=== PATIENT | male | born 1940 | race Caucasian/White ===

== ENCOUNTER → 2016-08-26 | Outpatient (CLI) | payer OTHER ==
[~2016-08-26] MED LIST: /METO25TAB PO; ACET30TAB PO; ACET50TA PO; ALLO100T PO; AMLO2.5T PO; AMLO5TAB2 PO; AMOX875T2 PO; ASPI325T PO; ASPI81TA7 PO; ASPI81TA85 PO; BACITAB3 PO; BRIM0.2S OU; BRIM2OPD OU; CLOP75TA2 PO; COUM2.5T11 PO; DIOV320T PO; DIOV80TA3 PO; DRIS50002 PO; ERGO4000 PO; FENO145T PO; FURO40TA2 PO; HYDR-3713 PO; KLOR1TAB77 PO; LEVO750T33 PO; MAG-400T7 PO; MELO7.5T3 PO; METO25TAB PO; MIRA3350 PO; MUPI2OI TOP; OMEP20CA3 PO; OMEP40CA2 PO; OXYB10TA PO; OXYB5TA PO; OXYC1TAB23 PO; PARO20TA2 PO; PARO20TA3 PO; PARO40TA2 PO; PERCOCET PO; POTA10CA PO; POTA20TA PO; PRAV80TA2 PO; SIMB1SUS OU; TIZA4CAP3 PO; TRAM50TA2 PO; ULTR50TA PO; ZYLO300T4 PO; [UNRECOGNIZED DRUG - CODE] PO
[2016-08-26 07:43] LABS: ALBUMIN 3.4 GM/DL (3.2-5.2); ANION GAP 7 MEQ/L (8-16); BLOOD UREA NITROGEN 11 MG/DL (7-18); CALCIUM LEVEL 8.5 MG/DL (8.8-10.2); CARBON DIOXIDE LEVEL 29 MEQ/L (21-32); CHLORIDE LEVEL 108 MEQ/L (98-107); CREATININE FOR GFR 1.23 MG/DL (0.70-1.30); GLOMERULAR FILTRATION RATE > 60.0 (>42); GLUCOSE, FASTING 109 MG/DL (83-110); MAGNESIUM LEVEL 1.9 MG/DL (1.8-2.4); PHOSPHORUS LEVEL 2.9 MG/DL (2.5-4.9); POTASSIUM SERUM 4.3 MEQ/L (3.5-5.1); SODIUM LEVEL 144 MEQ/L (136-145)
== END ==
LOC: M LAB 06:33
PROVIDERS: ATTEND Physician Assistant
DX: I50.32 Chronic diastolic (congestive) heart failure (principal); I47.2 Ventricular tachycardia

== ENCOUNTER → 2016-09-04 | Outpatient (REF) | payer OTHER ==
[2016-09-04 12:59] LABS: MEAN CORPUSCULAR HGB CONC 31.9 g/dl (32.0-36.5); MEAN CORPUSCULAR VOLUME 78.5 fl (80.0-96.0); RED CELL DISTRIBUTION WIDTH 15.4 % (11.5-14.5); WHITE BLOOD COUNT 7.3 K/mm3 (4.0-10.0)
[2016-09-04 13:29] LABS: ALBUMIN 3.6 GM/DL (3.2-5.2); ALBUMIN/GLOBULIN RATIO 1.13 (1.00-1.93); ALKALINE PHOSPHATASE 90 U/L (45-117); ALT/SGPT 17 U/L (12-78); ANION GAP 5 MEQ/L (8-16); AST/SGOT 15 U/L (15-37); BILIRUBIN,TOTAL 0.4 MG/DL (0.2-1.0); BLOOD UREA NITROGEN 11 MG/DL (7-18); CALCIUM LEVEL 8.9 MG/DL (8.8-10.2); CARBON DIOXIDE LEVEL 30 MEQ/L (21-32); CHLORIDE LEVEL 107 MEQ/L (98-107); CHOLESTEROL LEVEL 151 MG/DL (<200); CREATININE FOR GFR 1.05 MG/DL (0.70-1.30); GLOMERULAR FILTRATION RATE > 60.0 (>42); GLUCOSE, FASTING 94 MG/DL (83-110); MAGNESIUM LEVEL 2.1 MG/DL (1.8-2.4); POTASSIUM SERUM 4.4 MEQ/L (3.5-5.1); SODIUM LEVEL 142 MEQ/L (136-145); TOTAL PROTEIN 6.8 GM/DL (6.4-8.2); TRIGLYCERIDES LEVEL 203 MG/DL (<150)
== END ==
LOC: M SFHCADAM 10:31
PROVIDERS: ATTEND Family Medicine
DX: I25.10 Atherosclerotic heart disease of native coronary artery without angina pectoris (principal); I11.9 Hypertensive heart disease without heart failure; E74.9 Disorder of carbohydrate metabolism, unspecified; E78.2 Mixed hyperlipidemia; E83.40 Disorders of magnesium metabolism, unspecified; Z79.899 Other long term (current) drug therapy

== ENCOUNTER → 2016-10-22 | Outpatient (CLI) | payer OTHER ==
--- NOTE | 2016-10-22 10:09 | REP ---
CT STUDY OF THE CHEST WITHOUT CONTRAST: HISTORY: Thoracic and abdominal aortic aneurysm. Comparison CT study November 22, 2013. 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 Lung window settings demonstrate a stable noncalcified 11 mm nodule in the right lung near the minor fissure. This is unchanged from 2014 and is felt to be benign. No other pulmonary nodule or infiltrate is seen. No pleural or pericardial effusion is seen. Coronary artery vascular calcification and thoracic aortic great vessel vascular calcification are seen. No thoracic aortic aneurysm is seen. The aortic root measures 4.3 cm in greatest AP dimension at the level of the main pulmonary artery. Previously, this dimension is 4.2 cm by my measurement on the 2014 prior images. No descending aortic aneurysm is seen in the thorax. No bony destructive lesion is appreciated. IMPRESSION: Atherosclerotic vascular calcification. Prior sternotomy. Stable right lung nodule. No evidence of thoracic aortic aneurysm on this noncontrast CT study. Signed by Pravin Guzman MD 10/22/2016 01:33 P
--- NOTE | 2016-10-22 10:16 | REP ---
CT abdomen and pelvis without IV contrast or oral contrast: History: Thoracic and abdominal aortic aneurysm. Comparison CT abdomen is from March 14, 2016. This was reported as showing a 4.5 x 4.2 cm abdominal aortic aneurysm. CT findings: Vascular calcification is again noted. Today's study confirms the presence of an infrarenal abdominal aortic aneurysm. On today's axial CT images, the aneurysm has a 4.8 cm AP dimension by 4.3 cm right to left dimension. Previous dimensions were 4.5 x 4.2 cm. There is no evidence of jerardo aneurysmal hemorrhage or mass. Scattered retroperitoneal nonenlarged lymph nodes are again seen unchanged. Cholelithiasis is again noted. There are multiple hepatic cysts again noted. A 2.3 cm accessory splenule is visible in the left upper quadrant unchanged. No pancreatic abnormality is seen. No hydronephrosis or renal mass is observed. The aneurysmal segment of the abdominal aorta begins 5-1/2 cm distal to the origin of the renal arteries. No iliac artery aneurysm is appreciated. Impression: 4.8 x 4.3 cm infrarenal abdominal aortic aneurysm. Previous dimensions March 14, 2016 were 4.5 x 4.2 cm. Signed by Pravin Guzman MD 10/22/2016 01:33 P
== END ==
LOC: M RAD 09:11
PROVIDERS: ATTEND Surgery Vascular Surgery
DX: I71.4 Abdominal aortic aneurysm, without rupture (principal); I71.2 Thoracic aortic aneurysm, without rupture

== ENCOUNTER → 2017-01-23 | Outpatient (CLI) | payer OTHER ==
[~2017-01-23] MED LIST changes: +ASPI1TAB15 PO; -ASPI81TA7 PO; +BACITAB PO; -BACITAB3 PO; -COUM2.5T11 PO; +COUM2.5T17 PO; +LEVO750T13 PO; -LEVO750T33 PO; +METO25TA4 PO; -METO25TAB PO; -OXYB5TA PO; +OXYB5TAB10 PO; +WARF05TA PO
[2017-01-23 14:25] LABS: ALBUMIN 3.5 GM/DL (3.2-5.2); ANION GAP 10 MEQ/L (8-16); BLOOD UREA NITROGEN 11 MG/DL (7-18); CARBON DIOXIDE LEVEL 23 MEQ/L (21-32); CHLORIDE LEVEL 111 MEQ/L (98-107); GLOMERULAR FILTRATION RATE > 60.0 (>42); GLUCOSE, FASTING 104 MG/DL (83-110); PHOSPHORUS LEVEL 2.8 MG/DL (2.5-4.9); POTASSIUM SERUM 4.3 MEQ/L (3.5-5.1); SODIUM LEVEL 144 MEQ/L (136-145)
== END ==
LOC: M LAB 13:18
PROVIDERS: ATTEND Physician Assistant
DX: I50.32 Chronic diastolic (congestive) heart failure (principal)

== ENCOUNTER → 2017-08-20 | Outpatient (CLI) | payer OTHER ==
[2017-08-20 13:50] LABS: ALBUMIN 3.5 GM/DL (3.2-5.2); ANION GAP 7 MEQ/L (8-16); BLOOD UREA NITROGEN 13 MG/DL (7-18); CALCIUM LEVEL 8.6 MG/DL (8.8-10.2); CARBON DIOXIDE LEVEL 27 MEQ/L (21-32); CHLORIDE LEVEL 111 MEQ/L (98-107); GLOMERULAR FILTRATION RATE > 60.0 (>42); GLUCOSE, FASTING 91 MG/DL (70-100); PHOSPHORUS LEVEL 2.8 MG/DL (2.5-4.9); POTASSIUM SERUM 4.3 MEQ/L (3.5-5.1); SODIUM LEVEL 145 MEQ/L (136-145)
== END ==
LOC: M LAB 12:39
DX: I50.32 Chronic diastolic (congestive) heart failure (principal); I47.2 Ventricular tachycardia
CPT/HCPCS: 83735

== ENCOUNTER → 2017-08-28 | Outpatient (CLI) | payer OTHER ==
[2017-08-28 06:43] LABS: HEMATOCRIT 37.7 % (42.0-52.0); HEMOGLOBIN 10.9 g/dl (13.5-17.5); MEAN CORPUSCULAR HEMOGLOBIN 20.3 pg (27.0-33.0); MEAN CORPUSCULAR HGB CONC 28.9 g/dl (32.0-36.5); MEAN CORPUSCULAR VOLUME 70.3 fl (80.0-96.0); PLATELET COUNT, AUTOMATED 183 10^3/uL (150-450); RED BLOOD COUNT 5.36 10^6/uL (4.30-6.10); RED CELL DISTRIBUTION WIDTH 18.9 % (11.5-14.5); WHITE BLOOD COUNT 7.1 10^3/uL (4.0-10.0)
[2017-08-28 07:11] LABS: ALBUMIN 3.6 GM/DL (3.2-5.2); ALKALINE PHOSPHATASE 89 U/L (45-117); ALT/SGPT 16 U/L (12-78); ANION GAP 5 MEQ/L (8-16); AST/SGOT 12 U/L (7-37); BILIRUBIN,TOTAL 0.4 MG/DL (0.2-1.0); BLOOD UREA NITROGEN 14 MG/DL (7-18); CALCIUM LEVEL 8.5 MG/DL (8.8-10.2); CARBON DIOXIDE LEVEL 29 MEQ/L (21-32); CHLORIDE LEVEL 110 MEQ/L (98-107); CHOLESTEROL LEVEL 121 MG/DL (<200); CHOLESTEROL RISK RATIO 3.666 (<5); FREE T4 0.89 NG/DL (0.76-1.46); GLOMERULAR FILTRATION RATE > 60.0 (>42); GLUCOSE, FASTING 114 MG/DL (70-100); HDL CHOLESTEROL 33 MG/DL (>40); LDL CHOLESTEROL 62.8 MG/DL (<100); MAGNESIUM LEVEL 1.9 MG/DL (1.8-2.4); NON-HDL-C 88 MG/DL; POTASSIUM SERUM 4.5 MEQ/L (3.5-5.1); SODIUM LEVEL 144 MEQ/L (136-145); TOTAL PROTEIN 7.2 GM/DL (6.4-8.2); TRIGLYCERIDES LEVEL 126 MG/DL (<150); URIC ACID 4.6 MG/DL (3.5-7.2)
[2017-08-28 08:41] LABS: TOTAL 25(OH) VITAMIN D 30.8 NG/ML (30.0-100.0)
[2017-08-28 09:16] LABS: ESTIMATED AVERAGE GLUCOSE 128 MG/DL (60-110); HEMOGLOBIN A1c 6.1 %
== END ==
LOC: M LAB 06:19
DX: I25.10 Atherosclerotic heart disease of native coronary artery without angina pectoris (principal); E74.9 Disorder of carbohydrate metabolism, unspecified; I47.2 Ventricular tachycardia; F32.9 Major depressive disorder, single episode, unspecified; E83.40 Disorders of magnesium metabolism, unspecified; M10.9 Gout, unspecified; E55.9 Vitamin D deficiency, unspecified; Z79.899 Other long term (current) drug therapy
CPT/HCPCS: 83735

== ENCOUNTER → 2017-09-03 | Outpatient (REF) | payer OTHER ==
[2017-09-03 19:30] LABS: RETIC HEMOGLOBIN EQUIVALENT 21.8 pg (24-36); RETICULOCYTE # 67.2 10^9/L (17-77); RETICULOCYTE % 1.2 % (0.5-1.5)
[2017-09-03 19:53] LABS: FERRITIN 9 NG/ML (26-388); IRON (FE) 27 UG/DL (65-175); PERCENT SATURATION 5.4 % (19.7-50.0); TOTAL IRON BINDING CAPACITY 498 UG/DL (250-450)
[2017-09-04 07:51] LABS: FOLATE 8.5 NG/ML (>5.4); VITAMIN B12 LEVEL 277 PG/ML (247-911)
== END ==
LOC: M SFHCADAM 11:19
DX: D50.9 Iron deficiency anemia, unspecified (principal)
CPT/HCPCS: 82746

== ENCOUNTER 2017-09-20 20:22 | Emergency (ER) | payer OTHER ==
[2017-09-20] MEDS ORDERED: ASPIRIN 81 MG CHEW TABLET As Ordered (20:56)
[2017-09-20 21:02] LABS: BASO % 0.4 % (0.0-1.0); EOS # 0.3 10^3/uL (0.0-0.50); EOS % 4.4 % (0.0-3.0); HEMATOCRIT 37.1 % (42.0-52.0); HEMOGLOBIN 10.8 g/dl (13.5-17.5); IMMATURE GRANULOCYTE % 0.3 % (0-3.0); LYMPH # 2.9 10^3/uL (1.5-4.5); LYMPH % 37.7 % (24.0-44.0); MEAN CORPUSCULAR HEMOGLOBIN 20.5 pg (27.0-33.0); MEAN CORPUSCULAR HGB CONC 29.1 g/dl (32.0-36.5); MEAN CORPUSCULAR VOLUME 70.3 fl (80.0-96.0); MONO # 0.5 10^3/uL (0.0-0.8); MONO % 6.3 % (0.0-5.0); NEUTROPHILS # 3.9 10^3/uL (1.8-7.7); NEUTROPHILS % 50.9 % (36.0-66.0); PLATELET COUNT, AUTOMATED 210 10^3/uL (150-450); RED BLOOD COUNT 5.28 10^6/uL (4.30-6.10); RED CELL DISTRIBUTION WIDTH 19.1 % (11.5-14.5); WHITE BLOOD COUNT 7.7 10^3/uL (4.0-10.0)
[2017-09-20 21:17] LABS: ANION GAP 6 MEQ/L (8-16); BLOOD UREA NITROGEN 12 MG/DL (7-18); CALCIUM LEVEL 8.4 MG/DL (8.8-10.2); CARBON DIOXIDE LEVEL 29 MEQ/L (21-32); CHLORIDE LEVEL 108 MEQ/L (98-107); CPK CREATINE PHOSPHOKINASE 108 U/L (39-308); GLOMERULAR FILTRATION RATE 48.1 (>42); GLUCOSE, FASTING 99 MG/DL (70-100); POTASSIUM SERUM 3.6 MEQ/L (3.5-5.1); SODIUM LEVEL 143 MEQ/L (136-145); TROPONIN I < 0.02 NG/ML (< 0.10)
[2017-09-20 21:18] LABS: CK-MB VALUE MASS 2.4 NG/ML (<3.6); MB/CK RELATIVE INDEX 2.22 (< OR =4)
[2017-09-20] MEDS: ASPIRIN 81 MG CHEW TABLET PO (21:20)
[2017-09-20 23:12] LABS: CK-MB VALUE MASS 2.8 NG/ML (<3.6); CPK CREATINE PHOSPHOKINASE 107 U/L (39-308); MB/CK RELATIVE INDEX 2.61 (< OR =4); TROPONIN I 0.03 NG/ML (< 0.10)
== END 2017-09-20 23:51 | disposition home or self-care (01) ==
LOC: M ED 20:22
DX: T82.198A Other mechanical complication of other cardiac electronic device, initial encounter (principal); Y92.9 Unspecified place or not applicable; Y93.9 Activity, unspecified; I44.0 Atrioventricular block, first degree; I25.10 Atherosclerotic heart disease of native coronary artery without angina pectoris; I25.2 Old myocardial infarction; J44.9 Chronic obstructive pulmonary disease, unspecified; Z87.891 Personal history of nicotine dependence; Z79.82 Long term (current) use of aspirin; Z79.899 Other long term (current) drug therapy; Z88.8 Allergy status to other drugs, medicaments and biological substances
CPT/HCPCS: 71045

== ENCOUNTER → 2017-12-22 | Outpatient (CLI) | payer OTHER ==
[2017-12-22 15:34] LABS: ALBUMIN 3.4 GM/DL (3.2-5.2); ANION GAP 5 MEQ/L (8-16); BLOOD UREA NITROGEN 8 MG/DL (7-18); CALCIUM LEVEL 8.4 MG/DL (8.8-10.2); CARBON DIOXIDE LEVEL 27 MEQ/L (21-32); CHLORIDE LEVEL 111 MEQ/L (98-107); CREATININE FOR GFR 1.07 MG/DL (0.70-1.30); GLOMERULAR FILTRATION RATE > 60.0 (>42); GLUCOSE, FASTING 88 MG/DL (70-100); MAGNESIUM LEVEL 1.9 MG/DL (1.8-2.4); PHOSPHORUS LEVEL 2.9 MG/DL (2.5-4.9); SODIUM LEVEL 143 MEQ/L (136-145)
== END ==
LOC: M LAB 14:46
DX: I50.32 Chronic diastolic (congestive) heart failure (principal); I47.2 Ventricular tachycardia
CPT/HCPCS: 83735

== ENCOUNTER → 2017-12-31 | Outpatient (REF) | payer OTHER | LOC: M LAB REF 09:09 | DX: L72.0 Epidermal cyst (principal) | CPT/HCPCS: 88304 ==

== ENCOUNTER → 2018-03-04 | Outpatient (REF) | payer OTHER ==
[2018-03-04 13:18] LABS: HEMATOCRIT 39.8 % (42.0-52.0); HEMOGLOBIN 11.5 g/dl (13.5-17.5); MEAN CORPUSCULAR HGB CONC 28.9 g/dl (32.0-36.5); MEAN CORPUSCULAR VOLUME 72.8 fl (80.0-96.0); PLATELET COUNT, AUTOMATED 218 10^3/uL (150-450); RED BLOOD COUNT 5.47 10^6/uL (4.30-6.10); RETIC HEMOGLOBIN EQUIVALENT 21.5 pg (24-36); RETICULOCYTE # 70.6 10^9/L (17-77); RETICULOCYTE % 1.3 % (0.5-1.5); WHITE BLOOD COUNT 7.7 10^3/uL (4.0-10.0)
[2018-03-04 13:32] LABS: ALBUMIN 3.6 GM/DL (3.2-5.2); ALBUMIN/GLOBULIN RATIO 1.03 (1.00-1.93); ALKALINE PHOSPHATASE 94 U/L (45-117); ALT/SGPT 17 U/L (12-78); ANION GAP 4 MEQ/L (8-16); AST/SGOT 13 U/L (7-37); BILIRUBIN,TOTAL 0.5 MG/DL (0.2-1.0); BLOOD UREA NITROGEN 12 MG/DL (7-18); CALCIUM LEVEL 8.4 MG/DL (8.8-10.2); CARBON DIOXIDE LEVEL 30 MEQ/L (21-32); CHLORIDE LEVEL 109 MEQ/L (98-107); CREATININE FOR GFR 1.13 MG/DL (0.70-1.30); FERRITIN 12 NG/ML (26-388); GLOMERULAR FILTRATION RATE > 60.0 (>42); GLUCOSE, FASTING 96 MG/DL (70-100); IRON (FE) 28 UG/DL (65-175); PERCENT SATURATION 5.7 % (19.7-50.0); POTASSIUM SERUM 4.6 MEQ/L (3.5-5.1); SODIUM LEVEL 143 MEQ/L (136-145); TOTAL IRON BINDING CAPACITY 488 UG/DL (250-450); TOTAL PROTEIN 7.1 GM/DL (6.4-8.2)
[2018-03-04 13:35] LABS: TOTAL 25(OH) VITAMIN D 47.1 NG/ML (30.0-100.0)
== END ==
LOC: M SFHCADAM 10:19
DX: D50.9 Iron deficiency anemia, unspecified (principal); I11.9 Hypertensive heart disease without heart failure; E55.9 Vitamin D deficiency, unspecified; Z79.899 Other long term (current) drug therapy; Z23 Encounter for immunization
CPT/HCPCS: 83550

== ENCOUNTER → 2018-05-28 | Outpatient (CLI) | payer MEDICARE ==
[~2018-05-28] MED LIST changes: +ACET1TAB55 PO; -AMLO2.5T PO; +AMLO2.5T3 PO; +ASPI1TAB PO; -DRIS50002 PO; +DRIS50003 PO; -FENO145T PO; +FENO145T13 PO; +K-TA10TA2 PO; +KLOR10TA76 PO; +KLOR20TA42 PO; +NITR4TASL SL; -POTA10CA PO; -POTA20TA PO; +TIZA4CAP PO; -TIZA4CAP3 PO; +XALA0.007 OU; -ZYLO300T4 PO; +ZYLO300T6 PO
--- NOTE | 2018-05-28 16:25 | REP ---
Duplex extremity venous ultrasound: Left lower extremity. History: Left lower extremity swelling. Findings: The deep veins are anechoic and fully compressible from the groin to the popliteal fossa in the left lower extremity. Color flow imaging is homogeneous. Spectral Doppler interrogation demonstrates intact respiratory variation in flow and normal manual augmentation of flow. There is no evidence of deep vein thrombosis. There is a complex fluid collection in the left groin measuring 5.6 x 3.7 x 4.8 cm. This is compatible with postoperative hematoma seroma or conceivably lymphocele. The patient reports lymphadenectomy recently. Impression: Negative left lower extremity duplex venous ultrasound. No evidence of deep vein thrombosis. 5.6 x 3.7 x 4.8 cm complex fluid collection in the left groin. Postoperative collection. Electronically Signed by Pravin Guzman MD 05/28/2018 04:16 P
== END ==
LOC: M RAD 15:38
PROVIDERS: ATTEND Family Medicine
DX: M79.89 Other specified soft tissue disorders (principal); Z98.890 Other specified postprocedural states
CPT/HCPCS: 93971; G0463

== ENCOUNTER → 2018-06-28 | Outpatient (CLI) | payer MEDICARE ==
[2018-06-28 08:41] LABS: ALBUMIN 3.1 GM/DL (3.2-5.2); CALCIUM LEVEL 8.1 MG/DL (8.8-10.2); CREATININE FOR GFR 1.24 MG/DL (0.70-1.30); GLOMERULAR FILTRATION RATE 59.9 (>42); MAGNESIUM LEVEL 1.9 MG/DL (1.8-2.4); PHOSPHORUS LEVEL 2.3 MG/DL (2.5-4.9); POTASSIUM SERUM 4.6 MEQ/L (3.5-5.1)
== END ==
LOC: M LAB 07:06
PROVIDERS: ATTEND Physician Assistant
DX: I50.32 Chronic diastolic (congestive) heart failure (principal); I47.2 Ventricular tachycardia

== ENCOUNTER 2018-11-08 06:51 | Day surgery (SDC) | payer OTHER ==
[~2018-11-08] VITALS: Ht 175.3 cm; Wt 122.9 kg
[~2018-11-08 06:51] MED LIST changes: -/METO25TAB PO; +ACET-716 PO; -ACET30TAB PO; -ACET50TA PO; -ASPI1TAB PO; +ASPI81TA26 PO; +MAPA500T17 PO; +METO1TAB87 PO; +MUPI1OIN2 TOP; -MUPI2OI TOP; +NS 1,000 ML IV ONE
[2018-11-08] MEDS ORDERED: LIDOCAINE 2% INJ 100 MG/5 ML SDV (FOR ANES.) As Ordered ONE (07:10)
[2018-11-08] MEDS ORDERED: PROPOFOL 500 MG/50 ML VIAL As Ordered ONE (07:10)
--- NOTE | 2018-11-08 08:30 | ROOR ---
Patient Name: Jorge Sanabria Procedure Date: 11/08/2018 8:12 AM Date of : 1940 Age: 78 Room: [facility] Gender: Male Note Status: Finalized Procedure: Upper Endoscopy + Biopsies Indications: Iron deficiency anemia Providers: Albaro Soler MD Referring MD: Kian Cortés MD Requesting Provider: Medicines: Monitored Anesthesia Care Complications: No immediate complications. Procedure: Pre-Anesthesia Assessment: - The heart rate, respiratory rate, oxygen saturations, blood pressure, adequacy of pulmonary ventilation, and response to care were monitored throughout the procedure. The Endoscope was introduced through the mouth, and advanced to the second part of duodenum. The upper GI endoscopy was accomplished without difficulty. The patient tolerated the procedure well. Findings: The Z-line was regular and was found 45 cm from the incisors. No other significant abnormalities were identified in a careful examination of the stomach. Biopsies were taken with a cold forceps in the gastric antrum for Helicobacter pylori testing. The exam of the duodenum was otherwise normal. Biopsies for histology were taken with a cold forceps in the first portion of the duodenum for evaluation of celiac disease. Impression: - Z-line regular, 45 cm from the incisors. - Biopsies were taken with a cold forceps for Helicobacter pylori testing. - Biopsies were taken with a cold forceps for evaluation of celiac disease. - The examination was otherwise normal. Recommendation: - Patient has a contact number available for emergencies. The signs and symptoms of potential delayed complications were discussed with the patient. Return to normal activities tomorrow. Written discharge instructions were provided to the patient. - High fiber diet. - Discharge patient to home. - Follow an antireflux regimen. - Continue present medications. - Await pathology results. - Telephone GI clinic for pathology results in 1 week. - Return to referring physician. - The findings and recommendations were discussed with the patient's family. Albaro Soler MD Albaro Soler MD 11/08/2018 8:29:55 AM Electronically signed by Albaro Soler MD Number of Addenda: 0 Note Initiated On: 11/08/2018 8:12 AM Estimated Blood Loss: Estimated blood loss: none.
[2018-11-08] MEDS ORDERED: ePHEDrine SULFATE 25 MG/5 ML(5MG/ML) SYRINGE As Ordered ONE (08:32)
--- NOTE | 2018-11-08 08:46 | ROOR ---
Patient Name: Jorge Sanabria Procedure Date: 11/08/2018 8:13 AM Date of : 1940 Age: 78 Room: [facility] Gender: Male Note Status: Finalized Procedure: Total Colonoscopy to Cecum Indications: Iron deficiency anemia Providers: Albaro Soler MD Referring MD: Kian Cortés MD Requesting Provider: Medicines: Monitored Anesthesia Care Complications: No immediate complications. Procedure: Pre-Anesthesia Assessment: - The heart rate, respiratory rate, oxygen saturations, blood pressure, adequacy of pulmonary ventilation, and response to care were monitored throughout the procedure. The Colonoscope was introduced through the anus and advanced to the cecum, identified by appendiceal orifice and ileocecal valve. The colonoscopy was performed without difficulty. The patient tolerated the procedure well. The quality of the bowel preparation was good. Findings: The perianal and digital rectal examinations were normal. Non-bleeding internal hemorrhoids were found during retroflexion. The hemorrhoids were small and Grade I (internal hemorrhoids that do not prolapse). Multiple small and large-mouthed diverticula were found in the recto-sigmoid colon, sigmoid colon and descending colon. The exam was otherwise without abnormality on direct and retroflexion views. Impression: - Non-bleeding internal hemorrhoids. - Diverticulosis in the recto-sigmoid colon, in the sigmoid colon and in the descending colon. - The examination was otherwise normal on direct and retroflexion views. - No specimens collected. - The exam was otherwise normal to the cecum. Recommendation: - Patient has a contact number available for emergencies. The signs and symptoms of potential delayed complications were discussed with the patient. Return to normal activities tomorrow. Written discharge instructions were provided to the patient. - High fiber diet. - Discharge patient to home. - Continue present medications. - Repeat colonoscopy for symptoms only. - Return to referring physician. - The findings and recommendations were discussed with the patient's family. Albaro Soler MD Albaro Soler MD 11/08/2018 8:45:28 AM Electronically signed by Albaro Soler MD Number of Addenda: 0 Note Initiated On: 11/08/2018 8:13 AM Estimated Blood Loss: Estimated blood loss: none.
[2018-11-08 09:14] VITALS: BP 138/60
== END 2018-11-08 09:21 | disposition home or self-care (01) ==
LOC: M OPP 06:51
PROVIDERS: ATTEND Internal Medicine Gastroenterology
DX: K64.0 First degree hemorrhoids (principal); K57.30 Diverticulosis of large intestine without perforation or abscess without bleeding; D50.9 Iron deficiency anemia, unspecified

== ENCOUNTER → 2019-04-26 | Outpatient (REF) | payer OTHER, MEDICARE ==
[~2019-04-26] MED LIST changes: -NS 1,000 ML IV ONE; +OMEP-172 PO; -OMEP20CA3 PO; -OXYB10TA PO; +OXYB10TA2 PO
== END ==
LOC: M LAB REF 19:07
PROVIDERS: ATTEND Dermatology
DX: L57.0 Actinic keratosis (principal)

== ENCOUNTER → 2019-10-07 | Outpatient (REF) | payer MEDICARE ==
[~2019-10-07] MED LIST changes: -FENO145T13 PO; +FENO145T7 PO; -OMEP-172 PO; +OMEP1CAP73 PO; -OXYB10TA2 PO; +OXYB10TA23 PO
== END ==
LOC: M LAB REF 16:14
PROVIDERS: ATTEND Dermatology
DX: C44.229 Squamous cell carcinoma of skin of left ear and external auricular canal (principal)
CPT/HCPCS: 11102; 88305; G0463

== ENCOUNTER 2019-10-08 11:47 | Emergency (ER) | payer OTHER, MEDICARE ==
[~2019-10-08] VITALS: Ht 175.3 cm; Wt 127.8 kg
--- NOTE | 2019-10-08 13:51 | REP ---
Clinical: Left lower extremity pain and swelling . Technique: Pacheco scale and color Doppler evaluation of the left lower extremity using linear high frequency transducer. Findings: Ultrasound examination of the left lower extremity deep venous structures from the common femoral vein to the popliteal vein demonstrates normal compressibility flow and wave patterns in response to respiration and augmentation. There is no evidence for deep venous thrombosis. Impression: No evidence for deep venous thrombosis. Electronically Signed by Cody Martínez MD 10/08/2019 01:42 P
[2019-10-08 13:55] VITALS: BP 138/81
== END 2019-10-08 13:57 | disposition home or self-care (01) ==
LOC: M ED 11:47
DX: M79.89 Other specified soft tissue disorders (principal); I11.0 Hypertensive heart disease with heart failure; I50.9 Heart failure, unspecified; I25.2 Old myocardial infarction; E78.5 Hyperlipidemia, unspecified; G47.33 Obstructive sleep apnea (adult) (pediatric); K21.9 Gastro-esophageal reflux disease without esophagitis; F41.9 Anxiety disorder, unspecified; F32.9 Major depressive disorder, single episode, unspecified; Z85.46 Personal history of malignant neoplasm of prostate; C85.90 Non-Hodgkin lymphoma, unspecified, unspecified site; F17.200 Nicotine dependence, unspecified, uncomplicated; Z86.718 Personal history of other venous thrombosis and embolism; Z88.8 Allergy status to other drugs, medicaments and biological substances; Z79.899 Other long term (current) drug therapy; Z79.82 Long term (current) use of aspirin

== ENCOUNTER → 2019-10-27 | Outpatient (REF) | payer MEDICARE ==
[~2019-10-27] MED LIST changes: +AMOX500C PO; +ASPI-546 PO; -ASPI1TAB15 PO; -ASPI81TA85 PO; +ASPI81TA86 PO; +B-12100011 SL; +COLA100C5 PO; +CYAN100050 PO; +FERR324T2 PO; +LINE1TAB PO; +LOPR1TAB6 PO; +OXYC-517 PO; +POTA20TA6 PO; +SULF1TAB93 PO; +VITA50005 PO
== END ==
LOC: M LAB REF 10:32
PROVIDERS: ATTEND Dermatology
DX: L90.5 Scar conditions and fibrosis of skin (principal); L57.8 Other skin changes due to chronic exposure to nonionizing radiation

== ENCOUNTER → 2019-10-31 | Outpatient (CLI) | payer MEDICARE ==
[~2019-10-31] MED LIST changes: -AMOX500C PO; -ASPI-546 PO; +ASPI1TAB15 PO; +ASPI81TA85 PO; -ASPI81TA86 PO; -B-12100011 SL; -COLA100C5 PO; -CYAN100050 PO; -FERR324T2 PO; -LINE1TAB PO; -LOPR1TAB6 PO; -OXYC-517 PO; -POTA20TA6 PO; -SULF1TAB93 PO; -VITA50005 PO
[2019-10-31 10:10] LABS: BLOOD UREA NITROGEN 13 MG/DL (7-18); CALCIUM LEVEL 8.6 MG/DL (8.8-10.2); CARBON DIOXIDE LEVEL 26 MEQ/L (21-32); CHLORIDE LEVEL 110 MEQ/L (98-107); CREATININE FOR GFR 1.13 MG/DL (0.70-1.30); GLOMERULAR FILTRATION RATE > 60.0 (>35); GLUCOSE, FASTING 139 MG/DL (70-100); MAGNESIUM LEVEL 1.8 MG/DL (1.8-2.4); POTASSIUM SERUM 4.1 MEQ/L (3.5-5.1); SODIUM LEVEL 143 MEQ/L (136-145)
== END ==
LOC: M LAB 09:17
PROVIDERS: ATTEND Physician Assistant
DX: I50.32 Chronic diastolic (congestive) heart failure (principal); I44.0 Atrioventricular block, first degree; I49.01 Ventricular fibrillation

== ENCOUNTER → 2020-02-29 | Outpatient (CLI) | payer MEDICARE ==
[~2020-02-29] MED LIST changes: +ASPI-546 PO; -ASPI1TAB15 PO; -ASPI81TA85 PO; +ASPI81TA86 PO
[2020-02-29 09:17] LABS: BLOOD UREA NITROGEN 16 MG/DL (7-18); CALCIUM LEVEL 9.1 MG/DL (8.8-10.2); CARBON DIOXIDE LEVEL 29 MEQ/L (21-32); CHLORIDE LEVEL 106 MEQ/L (98-107); CREATININE FOR GFR 1.16 MG/DL (0.70-1.30); GLOMERULAR FILTRATION RATE > 60.0 (>35); GLUCOSE, FASTING 104 MG/DL (70-100); MAGNESIUM LEVEL 2.2 MG/DL (1.8-2.4); POTASSIUM SERUM 4.4 MEQ/L (3.5-5.1); SODIUM LEVEL 140 MEQ/L (136-145)
== END ==
LOC: M LAB 07:37
PROVIDERS: ATTEND Physician Assistant
DX: I50.32 Chronic diastolic (congestive) heart failure (principal); I49.01 Ventricular fibrillation

== ENCOUNTER 2020-04-26 16:59 | Inpatient (IN) | payer OTHER, MEDICARE ==
[~2020-04-26] VITALS: Ht 175.3 cm; Wt 116.3 kg
[2020-04-26] MEDS ORDERED: PANTOPRAZOLE 40MG VIAL (C9113 PER 1) IV ONE (17:30)
[2020-04-26] MEDS ORDERED: ACETAMINOPHEN 325 MG TAB PO ONE (17:30)
[2020-04-26] MEDS ORDERED: ONDANSETRON 4MG/2ML VIAL IV ONE (17:30)
[2020-04-26 17:48] LABS: BASO % 0.3 % (0.0-1.0); EOS # 0.1 10^3/uL (0.0-0.5); EOS % 1.2 % (0.0-3.0); HEMATOCRIT 40.2 % (42.0-52.0); HEMOGLOBIN 12.5 g/dl (13.5-17.5); LYMPH % 9.5 % (24.0-44.0); MEAN CORPUSCULAR HEMOGLOBIN 28.2 pg (27.0-33.0); MEAN CORPUSCULAR HGB CONC 31.1 g/dl (32.0-36.5); MEAN CORPUSCULAR VOLUME 90.5 fl (80.0-96.0); MONO # 0.9 10^3/uL (0.0-0.8); MONO % 8.1 % (0.0-5.0); NEUTROPHILS # 8.8 10^3/uL (1.5-8.5); NEUTROPHILS % 80.3 % (36.0-66.0); PLATELET COUNT, AUTOMATED 182 10^3/uL (150-450); RED BLOOD COUNT 4.44 10^6/uL (4.30-6.10); WHITE BLOOD COUNT 10.9 10^3/uL (4.0-10.0)
[2020-04-26 17:58] LABS: INR 1.13; PROTHROMBIN TIME 14.8 SECONDS (12.5-14.3)
[2020-04-26] MEDS: NS 1,000 ML IV SCH (18:02)
[2020-04-26] MEDS ORDERED: B-12100011 SL (18:19)
[2020-04-26 18:20] LABS: CK-MB VALUE MASS 1.6 NG/ML (<3.6); MB/CK RELATIVE INDEX 1.28 (< OR =4); TROPONIN I 0.03 NG/ML (< 0.10)
[2020-04-26 18:23] LABS: ALBUMIN 2.8 GM/DL (3.2-5.2); ALT/SGPT 21 U/L (12-78); BILIRUBIN,DIRECT 0.2 MG/DL (0.0-0.2); BILIRUBIN,TOTAL 0.6 MG/DL (0.2-1.0); BLOOD UREA NITROGEN 12 MG/DL (7-18); CALCIUM LEVEL 8.6 MG/DL (8.8-10.2); CARBON DIOXIDE LEVEL 27 MEQ/L (21-32); CHLORIDE LEVEL 107 MEQ/L (98-107); CREATININE FOR GFR 1.04 MG/DL (0.70-1.30); GLOMERULAR FILTRATION RATE > 60.0 (>35); GLUCOSE, FASTING 100 MG/DL (70-100); LIPASE 64 U/L (73-393); POTASSIUM SERUM 4.8 MEQ/L (3.5-5.1); SODIUM LEVEL 139 MEQ/L (136-145); TOTAL PROTEIN 6.3 GM/DL (6.4-8.2)
[2020-04-26] MEDS ORDERED: ISOVUE-370 76% 100ML VIAL As Ordered ONE (18:27)
--- NOTE | 2020-04-26 19:17 | REPVR ---
PROCEDURE INFORMATION: Exam: CT Chest With Contrast; Diagnostic Exam date and time: 04/26/2020 6:42 PM Age: 79 years old Clinical indication: Chest pain; Additional info: Abd pain TECHNIQUE: Imaging protocol: Diagnostic computed tomography of the chest with intravenous contrast. Radiation optimization: All CT scans at this facility use at least one of these dose optimization techniques: automated exposure control; mA and/or kV adjustment per patient size (includes targeted exams where dose is matched to clinical indication); or iterative reconstruction. Contrast material: ISOVUE 370; Contrast volume: 100 ml; Contrast route: INTRAVENOUS (IV); COMPARISON: CT Chest without contrast 10/22/2016 9:33 AM FINDINGS: Tubes, catheters and devices: Pacemaker is present in the left anterior chest wall with a single lead. Lungs: Series 204, image 51 demonstrates a stable 10 mm right middle lobe perifissural nodule. No change from prior scan. Image 57, stable 5 mm right middle lobe nodule. No new or progressive nodule. Pleural space: Unremarkable. No pneumothorax. No pleural effusion. Heart: There are coronary artery calcifications. Status post CABG. Pulmonary arteries: No evidence of pulmonary artery emboli. Aorta: The maximal diameter of the proximal aorta is 4.3 cm unchanged from prior scan. No rupture. No dissection. Lymph nodes: Small nonspecific mediastinal lymph nodes. No progressive lymph nodes. No enlarged lymph nodes. Bones/joints: Unremarkable. No acute fracture. Soft tissues: Unremarkable. IMPRESSION: 1. Ectatic proximal aorta measuring up to 4.3 cm. No change from prior scan. No rupture or dissection. 2. Right middle lobe nodules are stable compared with prior scan. No further imaging required as per Fleischner protocol. 3. No acute findings. Electronically signed by: Chema Curry On 04/26/2020 19:16:51 PM
--- NOTE | 2020-04-26 19:29 | REPVR ---
PROCEDURE INFORMATION: Exam: CT Abdomen And Pelvis With Contrast Exam date and time: 04/26/2020 6:42 PM Age: 79 years old Clinical indication: Abdominal pain; Generalized; Additional info: Abd pain TECHNIQUE: Imaging protocol: Computed tomography of the abdomen and pelvis with intravenous contrast. Radiation optimization: All CT scans at this facility use at least one of these dose optimization techniques: automated exposure control; mA and/or kV adjustment per patient size (includes targeted exams where dose is matched to clinical indication); or iterative reconstruction. Contrast material: ISOVUE 370; Contrast volume: 100 ml; Contrast route: INTRAVENOUS (IV); COMPARISON: CT ABD PELVIS W/O CONTRAST 10/22/2016 9:33 AM FINDINGS: Liver: There are numerous hypodensities in the liver. The largest is in the left lobe measuring 3.7 cm. These are consistent with simple cysts on density measurements. No change from prior scan. Gallbladder and bile ducts: There are multiple calcified gallstones within the gallbladder. No wall thickening or inflammation. Bile ducts are not dilated. Pancreas: The pancreas is normal. Spleen: The spleen is normal. Adrenal glands: The adrenals are normal. Kidneys and ureters: The kidneys are normal.No hydronephrosis. Stomach and bowel: There are scattered colonic diverticula. No associated wall thickening or inflammation. Appendix: No evidence of appendicitis. Intraperitoneal space: No intraperitoneal free fluid or fluid collection. No free air. Vasculature: There is an infrarenal abdominal aortic aneurysm measuring up to 5.0 by 5.1 cm. It measured 4.8 x 4.3 cm on the previous scan. A stent graft has been placed within the aneurysm. Stent patent. There is no evidence contrast within the excluded portion of the aneurysm. No evidence of endovascular leak on delayed images.. There is no evidence of rupture. Lymph nodes: Unremarkable. No enlarged lymph nodes. Urinary bladder: The bladder is normal with no evidence of calculi. Reproductive: Status post prostatectomy. Bones/joints: Degenerative changes of the lumbar spine. No acute fracture. Soft tissues: There are surgical clips in the inguinal regions bilaterally. There is streaky density in the adjacent subcutaneous fat. There are bilateral fluid collections adjacent to the femoral vessels. On the right this measures up to 2.4 cm. On the left this measures up to 2.4 cm. Density does not indicate hemorrhage or contrast extravasation. A punctate focus of gas is present in the collection on the right. Anterior to this there are also fluid collections in the subcutaneous fat. On the right this measures up to 4.8 cm and on the left this measures up to 4.4 cm. IMPRESSION: 1. 5.1 x 5.1 cm infrarenal abdominal aortic aneurysm with patent aortoiliac stent graft. No evidence of rupture, dissection or endovascular leak . 2. Bilateral inguinal surgical clips. There are fluid collections anterior to the femoral vessels and within the subcutaneous fat. These could represent subacute hematomas. No evidence acute hemorrhage or contrast extravasation. 3. Cholelithiasis. 4. Diverticulosis. No acute inflammatory findings. Electronically signed by: Chema Curry On 04/26/2020 19:28:56 PM
--- NOTE | 2020-04-26 19:36 | ECGEPIP ---
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
[2020-04-26] MEDS ORDERED: LIDOCAINE 2% 5ML JELLY UROJET TOP ONE (21:00)
[2020-04-26] MEDS ORDERED: VANCOMYCIN HCL 1,000 MG, VIAL MATE ADAPTER 1 EACH in D5W 250 ML IV ONE (22:45)
[2020-04-26] MEDS ORDERED: CYAN100050 PO (23:14)
[2020-04-26] MEDS ORDERED: VITA50005 PO (23:14)
[2020-04-26] MEDS ORDERED: POTA20TA6 PO (23:14)
[2020-04-26] MEDS ORDERED: COLA100C5 PO (23:14)
[2020-04-26] MEDS ORDERED: FERR324T2 PO (23:14)
[2020-04-26] MEDS ORDERED: LOPR1TAB6 PO (23:14)
[2020-04-26] MEDS ORDERED: OXYC-517 PO (23:14)
[2020-04-26] MEDS ORDERED: FURO40TA2 PO (23:14)
[2020-04-27 00:39] LABS: C REACTIVE PROTEIN QUANTITATIV 6.96 MG/DL (0.00-0.30)
[2020-04-27 01:10] LABS: ERYTHROCYTE SEDIMENTATION RATE 46 mm/hr (0-20)
[2020-04-27] MEDS: ACETAMINOPHEN TAB 650MG DOSE (2X325MG) PO PRN (02:45)
[2020-04-27] MEDS: NS 1,000 ML IV SCH (03:19)
--- NOTE | 2020-04-27 03:26 | REPVR ---
PROCEDURE INFORMATION: Exam: US Duplex Lower Extremity Veins, Bilateral Exam date and time: 04/27/2020 2:50 AM Age: 79 years old Clinical indication: Pain; Leg, upper; Bilateral; Additional info: Recent surgery, R/O dvt TECHNIQUE: Imaging protocol: Real-time duplex ultrasound of the extremities with 2-D holder scale, color Doppler flow and spectral waveform analysis with image documentation. Complete exam focused on the bilateral lower extremity veins. COMPARISON: US Duplex, Ext,LOWER veins,unilat 10/08/2019 12:58 PM FINDINGS: Right deep veins: Suboptimal evaluation of the right common femoral vein and proximal femoral vein. No definite DVT is visualized involving the right lower extremity. Right superficial veins: Saphenofemoral junction is patent without thrombus. Left deep veins: Suboptimal evaluation of the left common femoral and proximal femoral veins. No definite DVT is visualized involving the left lower extremity. Left superficial veins: Saphenofemoral junction is patent without thrombus. Soft tissues: Unremarkable. IMPRESSION: Suboptimal evaluation of the bilateral common femoral and proximal femoral veins. No definite DVT is visualized. Electronically signed by: Navjot Davis On 04/27/2020 03:26:29 AM
[2020-04-27] MEDS: PIPERACILLIN/TAZOBACTAM SOD 3.375 GM in D5W MINI-BAG PLUS 50 ML IV SCH ×4 (03:29→20:16)
--- NOTE | 2020-04-27 04:08 | HPEPDOC ---
[facility] Medical History & Physical Date of Admission Apr 27, 2020 Date of Service: Apr 27, 2020 Primary Care Physician: Kian Cortés MD Attending Physician: Mp Chowdary MD History and Physical CHIEF COMPLAINT: weakness, fever HISTORY OF PRESENT ILLNESS: Jorge Sanabria is an 79 YO M with history of CAD, AAA s/p endovascular stent placed one week ago who presents with several days chest pain, fatigue, abdominal pain and fever. His procedure was reportedly without complication and he was discharged home on the next day. The patient reports that since his surgery on 04/20/20 the patient has not been feeling "himself" at home. He has spent most of the day sleeping and has not been eating or drinking very much. The patient has also been complaining of chest pain in t he center of his chest but tells me "it's been like that off and on for years." Speaking to his daughter Alvina, she has not checked the patient's temperature at home but states he feels subjectively hot and has chills. Otherwise, the patient denies any cough, no nausea/vomiting and has had normal bowel movements. He also denies any dysuria. In the ED, the patient was found to have initial oral temperature 101.5. He was given empiric Vancomycin and IV fluids PAST MEDICAL HISTORY: AAA s/p endovascular stent at [facility] 1 week ago CAD--CABG X3 , PTCA/stent ramus intermedius branch 10/21; echo 08/03: EF 60%, mild diastolic dysfxn. history of IWMI. Hyperlipidemia. Prostate cancer---s/p radical prost 1997. COPD. Hypertension. paroxysmal ventricular tachycardia--AICD 11/20. Osteoarthritis, lucas knees. Benign neoplams of skin. Depression. History of BCC. Hearing impairment. PreDM. Metabolic syndrome. Gallstones--CT 11/17, 08/26. Fatty Liver CT 08/2010. Pulmonary nodules on CT 08/2010, 11/28. Bladder ca-tx at [facility] 2011 TURB/BCG instillation. Gout-- 01/28. UGI bleed 01/28 --gastric ulcer, was on NSAID. 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 Superficial phlebitis left leg--admitted 12/29 for cellulitis, it was not. JENSEN-- on CPAP. DDD/DJD, AAA on CTs spine 04/02 [facility]. DVT left lower leg (02/01), post-op left TKA; warfarin managed by [facility] until d/c after 6 mo. 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 Iron deficiency anemia 03/04. Vit D deficiency. PAST SURGICAL HISTORY: AAA endovascular stent , [facility] [place], 04/2020 appendectomy CABG X 3 radical prostatectomy left shoulder sx colonoscopy 2009 pacemaker inserted hemorrhiodectomy Cystoscopy [facility] TURB tumor (bladder ca) 2011 EGD for GI bleed--Coleman's esophagus, gastric ulcer (on NSAID), gastritis/duodennitis 01/28 AICD generator replaced 07-01 cystoscopy with bx by [facility] 08-01-15 ICD lead replacement [facility] 07-09-15 R knee replacement 01-28-16 carpal tunnel 06/03 left knee replacement; postop DVT left leg 02/0112/09/16 lymph node removed left groin 05/04 EGD (neg bx), colonoscopy (normal) 11/03 SOCIAL HISTORY: Former smoker, quit >10yrs ago Occasional alcohol, denies other drug use FAMILY HISTORY: Father: 74 yrs, myocardial infarction, diagnosed with Unspecified heart disease Mother: 39 yrs, pulmonary embolism, Other specified conditions influencing health status denies family hx of melanoma or pancreatic cancer. ALLERGIES: Please see below. REVIEW OF SYSTEMS: Constitutional: Subjective fevers, chills, malaise, fatigue. No weight change ENT/Mouth: No Hearing Changes, No Ear Pain, No Nasal Congestion, No Sinus Pain, No Hoarseness, No sore throat, No Rhinorrhea, No Swallowing Difficulty Cardiovascular: Reports some chest pain in center of his chest, off-and-on Respiratory: No Cough, No Wheezing, No Dyspnea Gastrointestinal: No Nausea, No Vomiting, No Diarrhea, No Constipation, No Pain, No Heartburn, No Anorexia, No Dysphagia, No Hematochezia, No Melena Genitourinary: No Dysuria Musculoskeletal: No Arthralgias, No Myalgias, No Joint Swelling, No Joint Stiffness, No Back Pain, No Neck Pain Skin: No Skin Lesions, Some tenderness in bilateral groin at surgical site Neuro: No Weakness, No Numbness, No Paresthesias, No Loss of Consciousness, No Syncope, No Dizziness, No Headache, No Coordination Changes, No Recent Falls Psych: No Anxiety/Panic, No Depression, No Insomnia, No Personality Changes, No Delusions Heme/Lymph: No Bruising, No Bleeding, No Transfusions History, No Lymphadenopathy Endocrine: No Polyuria, No Polydipsia, No Temperature Intolerance HOME MEDICATIONS: Please see below. PHYSICAL EXAMINATION: VITAL SIGNS: see below GENERAL: alert and oriented, in no apparent distress, pleasant and conversant in full sentences. HEENT: PERRL, EOMI, Oral mucous membranes are moist without lesions. NECK: The patient has no noted JVD. No adenopathy is appreciated. No thyromegaly CHEST/LUNGS: Lungs are clear bilaterally without rhonchi, rales, or wheezes. There is no subcutaneous air appreciated. There is no tenderness to the chest wall. HEART: Regular rate and rhythm. No murmurs, rubs, or gallops are appreciated. Distal pulses are 2+. No carotid bruits appreciated. ABDOMEN: Obese, Soft, nontender, and nondistended. Bowel sounds are positive. No organomegaly is appreciated. No masses are appreciated. There are no peritoneal signs. There is no Gary sign. The area of each surgical site in the R and left groin show closure with oseas and sutures surrounded by erythema and warmth, painful to touch, with some induration EXTREMITIES: There is chronic venous stasis and vascular edema in bilateral lower extremities SKIN: The remainder of the patients skin is warm and dry, without rashes or lesions. PSYCHIATRIC: AAO x 3, normal mood/affect NEUROLOGIC: The patient has 5/5 strength to the upper and lower extremities bilaterally. Sensation is intact throughout. Deep tendon reflexes are 2+ in all four extremities. There are no deficits to the cranial nerves. LABORATORY DATA: See below. IMAGING: CT CHEST: IMPRESSION: 1. Ectatic proximal aorta measuring up to 4.3 cm. No change from prior scan. No rupture or dissection. 2. Right middle lobe nodules are stable compared with prior scan. No further imaging required as per Fleischner protocol. 3. No acute findings. CT ABD/PEL: IMPRESSION: 1. 5.1 x 5.1 cm infrarenal abdominal aortic aneurysm with patent aortoiliac stent graft. No evidence of rupture, dissection or endovascular leak . 2. Bilateral inguinal surgical clips. There are fluid collections anterior to the femoral vessels and within the subcutaneous fat. These could represent subacute hematomas. No evidence acute hemorrhage or contrast extravasation. 3. Cholelithiasis. 4. Diverticulosis. No acute inflammatory findings. DOPPLER US, LE BILATERAL: FINDINGS: Right deep veins: Suboptimal evaluation of the right common femoral vein and proximal femoral vein. No definite DVT is visualized involving the right lower extremity. Right superficial veins: Saphenofemoral junction is patent without thrombus. Left deep veins: Suboptimal evaluation of the left common femoral and proximal femoral veins. No definite DVT is visualized involving the left lower extremity. Left superficial veins: Saphenofemoral junction is patent without thrombus. Soft tissues: Unremarkable. IMPRESSION: Suboptimal evaluation of the bilateral common femoral and proximal femoral veins. No definite DVT is visualized. MICROBIOLOGY: Please see below. ASSESSMENT: This is an 79 YO M with history of CAD, AAA s/p recent endovascular repair who presents with fatigue, chest pain and malaise found to be febrile with swelling and erythema in bilateral groin (at surgical site) concerning for postsurgical fever secondary to abdominal wall cellulitis PLAN: 1. Postoperative fever: Temperature found to be 102.1 in the ED. As patient is POD #7 he is at highest risk for superficial surgical site infection, UTI -CT chest not concerning for pneumonia, but patient could possibly still have atelectasis -Will order Incentive spiromtery -Concern for intraabdominal graft infection/leak but CT abd/pel with IV contrast without concerning findings. ED provider attempted to call [facility] in [place] for transfer but no beds available. -Doppler US lower extremities negative for DVT given recent inactivity -UA negative for infection -WBC mildly elevated at 10.9. Lactic acid normal -ESR elevated at 46, CRP 6.96 -Bilateral groin surgical sites appear erythematous, indurated concerning for surgical site infection -S/p Vancomycin in ED. MRSA screen ordered for now -Empiric Zosyn for now with plan to deescalate -Blood cultures ordered 2. Abdominal wall cellulitis -Empiric Zosyn -MRSA PCR ordered 3. History of CAD s/p CABG and stents: Patient does complain of off/on chest pain, likely anginal -continue ASA, Pravastatin -No EKG changes noted -Troponins WNL, will trend Q6H 4. HTN: -Continue Amlodipine, Valsartan, Metoprolol 5. CHFpEF, diastolic dysfunction: -Continue daily Lasix 40mg 6. Mood disorder: -Continue Paxil DVT ppx: Lovenox DISPO: Pending clinical improvement Vital Signs Vital Signs Date Time Temp Pulse Resp B/P (MAP) Pulse Ox O2 Delivery O2 Flow Rate FiO2 04/26/20 17:22 101.5 89 20 117/58 93 Room Air Laboratory Data Labs 24H Laboratory Tests 2 04/26/20 17:33: Immature Granulocyte % (Auto) 0.6, Neutrophils (%) (Auto) 80.3H, Lymphocytes (%) (Auto) 9.5L, Monocytes (%) (Auto) 8.1H, Eosinophils (%) (Auto) 1.2, Basophils (%) (Auto) 0.3, Neutrophils # (Auto) 8.8H, Lymphocytes # (Auto) 1.0L, Monocytes # (Auto) 0.9H, Eosinophils # (Auto) 0.1, Basophils # (Auto) 0.0, Nucleated Red Blood Cells % (auto) 0.0, Prothrombin Time 14.8H, Prothromb Time International Ratio 1.13, Anion Gap 5L, Glomerular Filtration Rate > 60.0, Lactic Acid Level 1.8, Calcium Level 8.6L, Total Bilirubin 0.6, Direct Bilirubin 0.2, Aspartate Amino Transf (AST/SGOT) 16, Alanine Aminotransferase (ALT/SGPT) 21, Alkaline Phosphatase 81, Total Creatine Kinase 125, Creatine Kinase MB 1.6, Creatine Kinase MB Relative Index 1.28, Troponin I 0.03, Total Protein 6.3L, Albumin 2.8L, Albumin/Globulin Ratio 0.8, Lipase 64L 04/26/20 22:16: Urine Color YELLOW, Urine Appearance CLEAR, Urine pH 6.0, Urine Specific [place] >1.060H, Urine Protein NEGATIVE, Urine Glucose (UA) NEGATIVE, Urine Ketones NEGATIVE, Urine Blood NEGATIVE, Urine Nitrite NEGATIVE, Urine Bilirubin NEGATIVE, Urine Urobilinogen 0.2, Urine Leukocyte Esterase NEGATIVE, Urine WBC (Auto) 1, Urine RBC (Auto) 2, Urine Hyaline Casts (Auto) 0, Urine Bacteria (Auto) NEGATIVE, Urine Squamous Epithelial Cells 1, Urine Mucus (Auto) SMALL, U rine Sperm (Auto) 04/26/20 23:40: CBC/BMP Laboratory Tests 04/26/20 17:33 Microbiology Microbiology 04/26/20 Blood Culture, Received Pending Home Medications Scheduled Allopurinol (Zyloprim) 300 Mg Tab, 300 MG PO DAILY Amlodipine Besylate (Amlodipine Besylate) 2.5 Mg Tab, 2.5 MG PO QHS Aspirin (Aspirin EC) 81 Mg Tab, 81 MG PO DAILY Cyanocobalamin (Vitamin B-12) (Vitamin B-12) 1,000 Mcg Tablet, 1,000 MCG PO QHS Docusate Sodium (Colace) 100 Mg Capsule, 100 MG PO QHS Ergocalciferol (Vitamin D2) (Vitamin D2) 50,000 Units Cap, 50,000 UNITS PO QWEEK FRIDAYS Ferrous Sulfate (Ferrous Sulfate) 324 Mg Tablet.dr, 324 MG PO DAILY Furosemide (Furosemide) 40 Mg Tablet, 40 MG PO DAILY Metoprolol Tartrate (Lopressor) 50 Mg Tablet, 25 MG PO QHS Omeprazole (Omeprazole) 20 Mg Cap, 20 MG PO BID Paroxetine HCl (Paroxetine HCl) 40 Mg Tab, 20 MG PO QHS Potassium Chloride (Potassium Chloride) 20 Meq Tab.er.prt, 20 MEQ PO QHS Pravastatin Sodium (Pravastatin Sodium) 80 Mg Tab, 80 MG PO QHS Valsartan (Diovan) 80 Mg Tab, 80 MG PO QHS Scheduled PRN Nitroglycerin (Nitrostat) 0.4 Mg Subl, 0.4 MG SL NITRO PRN for CHEST PAIN Oxycodone HCl (Oxycodone HCl) 5 Mg Tablet, 2.5 MG PO Q6H PRN for PAIN Allergies Coded Allergies: niacin (Verified Allergy, Intermediate, swelling, 10/29/18) clopidogrel (Verified Adverse Reaction, Severe, rectal and penile bleeding, 04/26/20) lisinopril (Verified Adverse Reaction, Intermediate, cough, 10/29/18) simvastatin (Verified Adverse Reaction, Intermediate, headaches, 10/29/18) spironolactone (Verified Adverse Reaction, Intermediate, breast enlargement, 04/26/20) meloxicam (Verified Adverse Reaction, Unknown, bleeding ulcer, 04/26/20) A-FIB/CHADSVASC A-FIB History Current/History of A-Fib/PAF?: No Current PO Anticoag Therapy: No GME ATTESTATION ATTENDING NOTE Family Medicine Attending Note: I was present on site to supervise Leyla Berumen DO (PGY-3). We discussed the history and exam. I confirmed the fregoso elements during my [id number] encounter with the patient. We conferred on the assessment and plan; I agree with the note as documented. I suspect that Mr. Sanabria's fever is coming from the cellulitis in his groin/abdominal wall. We will treat him for this, but must stay vigilant for other sources of potential infection. 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
[2020-04-27] MEDS ORDERED: oxyCODONE 5MG TAB PO PRN (04:15)
[2020-04-27] MEDS ORDERED: PILL CUTTER 1 EACH XX PRN (04:30)
[2020-04-27 05:04] VITALS: BP 149/100
[2020-04-27 07:02] LABS: BASO % 0.3 % (0.0-1.0); EOS # 0.1 10^3/uL (0.0-0.5); EOS % 0.7 % (0.0-3.0); HEMATOCRIT 36.2 % (42.0-52.0); HEMOGLOBIN 11.5 g/dl (13.5-17.5); LYMPH # 1.4 10^3/uL (1.5-5.0); MEAN CORPUSCULAR HEMOGLOBIN 28.8 pg (27.0-33.0); MEAN CORPUSCULAR HGB CONC 31.8 g/dl (32.0-36.5); MEAN CORPUSCULAR VOLUME 90.7 fl (80.0-96.0); MONO # 1.4 10^3/uL (0.0-0.8); NEUTROPHILS # 10.8 10^3/uL (1.5-8.5); NEUTROPHILS % 78.5 % (36.0-66.0); PLATELET COUNT, AUTOMATED 176 10^3/uL (150-450); RED BLOOD COUNT 3.99 10^6/uL (4.30-6.10); WHITE BLOOD COUNT 13.8 10^3/uL (4.0-10.0)
[2020-04-27 07:32] LABS: BLOOD UREA NITROGEN 12 MG/DL (7-18); CALCIUM LEVEL 8.3 MG/DL (8.8-10.2); CARBON DIOXIDE LEVEL 26 MEQ/L (21-32); CHLORIDE LEVEL 107 MEQ/L (98-107); CK-MB VALUE MASS 1.4 NG/ML (<3.6); CPK CREATINE PHOSPHOKINASE 101 U/L (39-308); CREATININE FOR GFR 1.06 MG/DL (0.70-1.30); GLOMERULAR FILTRATION RATE > 60.0 (>35); GLUCOSE, FASTING 93 MG/DL (70-100); MB/CK RELATIVE INDEX 1.39 (< OR =4); SODIUM LEVEL 138 MEQ/L (136-145); TROPONIN I 0.05 NG/ML (< 0.10)
--- NOTE | 2020-04-27 07:42 | IPNPDOC ---
Text Note Date of Service The patient was seen on 04/27/20. NOTE SUBJECTIVE: Patient is interviewed and examined and his hospital room. Patient was found to be resting comfortably on his bedside. He reports that overall he is feeling well though his surgical incision sites remain quite tender and painful with ambulation. No changes in the patient's status overnight. Denies any recent fever, chills. Denies any chest pain, shortness of breath, cough or wheeze. OBJECTIVE: VITAL SIGNS: see below GENERAL: alert and oriented, in no apparent distress, pleasant and conversant in full sentences. HEENT: Normocephalic, atraumatic, EOMI, sclera nonicteric, no conjunctival injection or pallor appreciated. Mucous members are moist. NECK: The patient has no noted JVD. No adenopathy is appreciated. No thyromegaly CHEST/LUNGS: Lungs are clear bilaterally without rhonchi, rales, or wheezes. HEART: Regular rate and rhythm. No murmurs, rubs, or gallops are appreciated. ABDOMEN: Obese, Soft, nontender, and nondistended. Bowel sounds are present throughout. GROIN: bilateral surgical incisions closed with both oseas and suture material. Warm, surrounding erythema, localized induration, exquisite tenderness on the right greater than left. Small amount of purulent drainage on the right. No evidence of abscess, blood or dehiscence. EXTREMITIES: Stigmata of venous stasis bilateral lower extremities, posterior tibial pulses 1+, radial pulses 2+. Pain or tenderness. SKIN: The remainder of the patients skin is warm and dry, without rashes or lesions. PSYCHIATRIC: Mood and affect are appropriate given patient's current clinical condition NEUROLOGIC: Alert and oriented to person place and time, patient moves all extremities equally. Normal motor tone and function. Cranial nerves III through XII are grossly intact. ASSESSMENT: This is an 79 YO M with history of CAD, AAA s/p recent endovascular repair who presents with fatigue, chest pain and malaise found to be febrile with swelling and erythema in bilateral groin (at surgical site) concerning for postsurgical fever. Patient was placed on empiric Zosyn. Wound culture, MRSA screen remain pending. PLAN: #Post-operative fever, post-op day #7 -Patient afebrile this morning, WBC of 13.8, lactic WNL. -No evidence of pneumonia. Incentive spirometry for atelectasis -UA negative for infection -Blood cultures pending #Surgical site infection -Bilateral groin surgical sites appear erythematous and indurated (R>L) -ESR elevated at 46, CRP 6.96 -IV Zosyn for empiric coverage, s/p Rocephin in the ED, MRSA screen pending -Wound culture pending, will de-escalate appropriately. #AAA repair -CTA negative for endoleak, graft well-placed. -ED provider contacted [facility] for transfer, no beds available. #History of CAD s/p CABG and stents -Continue ASA, Pravastatin -No EKG changes noted, no chest paint this am. -Troponin of 0.03, repeat this am of 0.05, will trend at 1200 #CHFpEF, diastolic dysfunction -Continue daily Lasix 40mg #Mood disorder -Continue Paxil DVT PROPHYLAXIS: Lovenox CODE STATUS: Full code DISPOSITION: Pending clinical improvement VS,Fishbone, I+O VS, Fishbone, I+O Laboratory Tests 04/26/20 17:33 04/27/20 06:19 Vital Signs Date Time Temp Pulse Resp B/P (MAP) Pulse Ox O2 Delivery O2 Flow Rate FiO2 04/27/20 05:04 98.6 89 20 149/100 (116) 93 Room Air I&O- Last 24 Hours up to 6 AM 04/27/20 06:00 Intake Total 1320 ml Output Total 0 ml Balance 1320 ml GME ATTESTATION GME ATTESTATION My faculty preceptor for this patient encounter was physically present during the encounter and was fully available. All aspects of the patient interview, examination, medical decision making process, and medical care plan development were reviewed and approved by the faculty preceptor. The faculty preceptor is aware and concurs with the plan as stated in the body of this note and will attest to such by his/her cosignature. ADONAY RICHMOND DO Apr 27, 2020 07:42
[2020-04-27] MEDS: ASPIRIN 81 MG ENTERIC TAB PO SCH (08:45)
[2020-04-27] MEDS: ENOXAPARIN 40MG/0.4ML SYRINGE (J1650 PER 10MG) SC SCH (08:45)
[2020-04-27] MEDS: FUROSEMIDE 40 MG TAB PO SCH (08:45)
[2020-04-27] MEDS: OMEPRAZOLE 20 MG CAP PO SCH ×2 (08:45→20:17)
[2020-04-27] MEDS: allopurinoL 300 MG TAB PO SCH (08:45)
[2020-04-27 14:00] VITALS: BP 145/100
[2020-04-27] MEDS: PARoxetine 20MG TABLET PO SCH (20:17)
[2020-04-27] MEDS: VALSARTAN 80 MG TAB (DIOVAN) PO SCH (20:18)
[2020-04-27] MEDS: METOPROLOL TART 50 MG TAB PO SCH (20:19)
[2020-04-27] MEDS: PRAVASTATIN 20 MG TAB PO SCH (20:19)
[2020-04-27] MEDS: DOCUSATE SODIUM 100MG CAPSULE PO SCH (20:19)
[2020-04-27 20:22] VITALS: BP 119/82
[2020-04-28] MEDS: PIPERACILLIN/TAZOBACTAM SOD 3.375 GM in D5W MINI-BAG PLUS 50 ML IV SCH ×4 (01:46→21:37)
[2020-04-28 06:11] VITALS: BP 107/65
[2020-04-28 07:09] LABS: BASO % 0.4 % (0.0-1.0); EOS # 0.4 10^3/uL (0.0-0.5); EOS % 4.1 % (0.0-3.0); HEMATOCRIT 35.7 % (42.0-52.0); HEMOGLOBIN 11.4 g/dl (13.5-17.5); LYMPH # 1.2 10^3/uL (1.5-5.0); MEAN CORPUSCULAR HEMOGLOBIN 28.8 pg (27.0-33.0); MEAN CORPUSCULAR HGB CONC 31.9 g/dl (32.0-36.5); MEAN CORPUSCULAR VOLUME 90.2 fl (80.0-96.0); MONO # 0.7 10^3/uL (0.0-0.8); NEUTROPHILS # 7.5 10^3/uL (1.5-8.5); NEUTROPHILS % 76.1 % (36.0-66.0); PLATELET COUNT, AUTOMATED 180 10^3/uL (150-450); RED BLOOD COUNT 3.96 10^6/uL (4.30-6.10); WHITE BLOOD COUNT 9.8 10^3/uL (4.0-10.0)
[2020-04-28 07:32] LABS: BLOOD UREA NITROGEN 14 MG/DL (7-18); CALCIUM LEVEL 8.1 MG/DL (8.8-10.2); CARBON DIOXIDE LEVEL 27 MEQ/L (21-32); CHLORIDE LEVEL 107 MEQ/L (98-107); CREATININE FOR GFR 1.15 MG/DL (0.70-1.30); GLOMERULAR FILTRATION RATE > 60.0 (>35); GLUCOSE, FASTING 95 MG/DL (70-100); POTASSIUM SERUM 4.4 MEQ/L (3.5-5.1); SODIUM LEVEL 139 MEQ/L (136-145)
[2020-04-28] MEDS: allopurinoL 300 MG TAB PO SCH (08:35)
[2020-04-28] MEDS: OMEPRAZOLE 20 MG CAP PO SCH ×2 (08:35→21:34)
[2020-04-28] MEDS: FUROSEMIDE 40 MG TAB PO SCH (08:35)
[2020-04-28] MEDS: ASPIRIN 81 MG ENTERIC TAB PO SCH (08:35)
[2020-04-28] MEDS: ENOXAPARIN 40MG/0.4ML SYRINGE (J1650 PER 10MG) SC SCH (08:36)
[2020-04-28] MEDS ORDERED: VANCOMYCIN HCL 1,000 MG, VIAL MATE ADAPTER 1 EACH in D5W 250 ML IV SCH (10:30)
[2020-04-28] MEDS ORDERED: VANCOMYCIN HCL 750 MG, VIAL MATE ADAPTER 1 EACH in D5W 250 ML IV ONE (11:00)
[2020-04-28] MEDS ORDERED: VANCOMYCIN HCL 1,000 MG, VIAL MATE ADAPTER 1 EACH in D5W 250 ML IV ONE (11:00)
--- NOTE | 2020-04-28 12:18 | IPNPDOC ---
Text Note Date of Service The patient was seen on 04/28/20. NOTE SUBJECTIVE: Patient seen and examined at bedside. No acute overnight events reported. Patient voices no new medical complaints this morning. States he continues to feel better. OBJECTIVE: VITAL SIGNS: see below GENERAL: NAD, lying comfortably in bed HEENT: NC/AT, EOMI CHEST/LUNGS: CTA B/L HEART: +S1S2, RRR ABDOMEN: soft, obese, NT, ND, +BS GROIN: bilateral surgical incisions closed with both oseas and suture material. Warm, surrounding erythema, localized induration, exquisite tenderness on the right greater than left. Small amount of purulent drainage on the right. No evidence of abscess, blood or dehiscence. EXTREMITIES: b/l chronic venous stasis changes PSYCHIATRIC: Mood and affect are appropriate given patient's current clinical condition ASSESSMENT: 79M with history of CAD, AAA s/p recent endovascular repair who presents with fatigue, chest pain and malaise found to be febrile with swelling and erythema in bilateral groin (at surgical site) concerning for postsurgical fever. Patient was placed on empiric Zosyn. Wound culture, MRSA screen remain pending. PLAN: #Post-operative fever, post-op day #8 -Patient remains afebrile - Leukocytosis, resolved -No evidence of pneumonia. Incentive spirometry for atelectasis -UA negative for infection -Blood cultures pending #Surgical site infection -Bilateral groin surgical sites appear erythematous and indurated (R>L) -ESR elevated at 46, CRP 6.96 on admission -IV Zosyn for empiric coverage, with vanco - s/p Rocephin in the ED -Wound culture pending - prelim shows staph aureus #AAA repair -CTA negative for endoleak, graft well-placed. -[facility] #History of CAD s/p CABG and stents -Continue ASA, Pravastatin -No EKG changes noted, no chest paint this am. -minimal troponinemia on admission - trending down #HFpEF -Continue daily Lasix 40mg #Mood disorder -Continue Paxil #DVT PROPHYLAXIS: Lovenox CODE STATUS: Full code DISPOSITION: Pending clinical improvement, culture results VS,Fishbone, I+O VS, Fishbone, I+O Laboratory Tests 04/28/20 06:51 Vital Signs Date Time Temp Pulse Resp B/P (MAP) Pulse Ox O2 Delivery O2 Flow Rate FiO2 04/28/20 06:11 98.3 85 20 107/65 (79) 97 Room Air I&O- Last 24 Hours up to 6 AM 04/28/20 06:00 Intake Total 1370 ml Output Total 0 ml Balance 1370 ml ERICKA LAINEZ MD Apr 28, 2020 12:18
[2020-04-28 14:00] VITALS: BP 134/89
[2020-04-28] MEDS: DOCUSATE SODIUM 100MG CAPSULE PO SCH (21:33)
[2020-04-28] MEDS: PARoxetine 20MG TABLET PO SCH (21:33)
[2020-04-28] MEDS: VALSARTAN 80 MG TAB (DIOVAN) PO SCH (21:34)
[2020-04-28] MEDS: PRAVASTATIN 20 MG TAB PO SCH (21:34)
[2020-04-28] MEDS: METOPROLOL TART 50 MG TAB PO SCH (21:36)
[2020-04-28] MEDS: ACETAMINOPHEN TAB 650MG DOSE (2X325MG) PO PRN (21:52)
[2020-04-28 22:00] VITALS: BP 130/71
[2020-04-28] MEDS: VANCOMYCIN HCL 1,000 MG, VIAL MATE ADAPTER 1 EACH in D5W 250 ML IV SCH (23:36)
[2020-04-29] MEDS: PIPERACILLIN/TAZOBACTAM SOD 3.375 GM in D5W MINI-BAG PLUS 50 ML IV SCH ×2 (03:45→09:16)
[2020-04-29 06:00] VITALS: BP 119/62
[2020-04-29 07:31] LABS: BASO % 0.5 % (0.0-1.0); EOS # 0.4 10^3/uL (0.0-0.5); EOS % 4.9 % (0.0-3.0); HEMATOCRIT 36.5 % (42.0-52.0); HEMOGLOBIN 11.7 g/dl (13.5-17.5); LYMPH # 1.1 10^3/uL (1.5-5.0); LYMPH % 13.9 % (24.0-44.0); MEAN CORPUSCULAR HEMOGLOBIN 28.7 pg (27.0-33.0); MEAN CORPUSCULAR HGB CONC 32.1 g/dl (32.0-36.5); MEAN CORPUSCULAR VOLUME 89.5 fl (80.0-96.0); MONO # 0.7 10^3/uL (0.0-0.8); NEUTROPHILS # 5.9 10^3/uL (1.5-8.5); NEUTROPHILS % 72.2 % (36.0-66.0); PLATELET COUNT, AUTOMATED 227 10^3/uL (150-450); RED BLOOD COUNT 4.08 10^6/uL (4.30-6.10); WHITE BLOOD COUNT 8.1 10^3/uL (4.0-10.0)
[2020-04-29 07:59] LABS: BLOOD UREA NITROGEN 12 MG/DL (7-18); CALCIUM LEVEL 8.4 MG/DL (8.8-10.2); CARBON DIOXIDE LEVEL 29 MEQ/L (21-32); CHLORIDE LEVEL 108 MEQ/L (98-107); CREATININE FOR GFR 1.02 MG/DL (0.70-1.30); GLOMERULAR FILTRATION RATE > 60.0 (>35); GLUCOSE, FASTING 102 MG/DL (70-100); POTASSIUM SERUM 3.9 MEQ/L (3.5-5.1); SODIUM LEVEL 141 MEQ/L (136-145)
[2020-04-29] MEDS: OMEPRAZOLE 20 MG CAP PO SCH ×2 (09:16→21:01)
[2020-04-29] MEDS: allopurinoL 300 MG TAB PO SCH (09:16)
[2020-04-29] MEDS: ASPIRIN 81 MG ENTERIC TAB PO SCH (09:16)
[2020-04-29] MEDS: FUROSEMIDE 40 MG TAB PO SCH (09:16)
[2020-04-29] MEDS: ENOXAPARIN 40MG/0.4ML SYRINGE (J1650 PER 10MG) SC SCH (09:17)
[2020-04-29] MEDS: VANCOMYCIN HCL 1,000 MG, VIAL MATE ADAPTER 1 EACH in D5W 250 ML IV SCH ×2 (11:23→23:21)
[2020-04-29 14:15] VITALS: BP 118/78
[2020-04-29] MEDS: VALSARTAN 80 MG TAB (DIOVAN) PO SCH (21:00)
[2020-04-29] MEDS: METOPROLOL TART 50 MG TAB PO SCH (21:00)
[2020-04-29] MEDS: ACETAMINOPHEN TAB 650MG DOSE (2X325MG) PO PRN (21:00)
[2020-04-29] MEDS: DOCUSATE SODIUM 100MG CAPSULE PO SCH (21:01)
[2020-04-29] MEDS: PARoxetine 20MG TABLET PO SCH (21:01)
[2020-04-29] MEDS: PRAVASTATIN 20 MG TAB PO SCH (21:01)
[2020-04-29 22:00] VITALS: BP 133/63
[2020-04-30 06:00] VITALS: BP 136/75
[2020-04-30 07:26] LABS: BASO % 0.5 % (0.0-1.0); EOS # 0.3 10^3/uL (0.0-0.5); EOS % 4.4 % (0.0-3.0); HEMATOCRIT 38.5 % (42.0-52.0); HEMOGLOBIN 12.4 g/dl (13.5-17.5); LYMPH # 1.3 10^3/uL (1.5-5.0); LYMPH % 16.5 % (24.0-44.0); MEAN CORPUSCULAR HEMOGLOBIN 28.7 pg (27.0-33.0); MEAN CORPUSCULAR HGB CONC 32.2 g/dl (32.0-36.5); MEAN CORPUSCULAR VOLUME 89.1 fl (80.0-96.0); MONO # 0.6 10^3/uL (0.0-0.8); MONO % 7.8 % (0.0-5.0); NEUTROPHILS # 5.3 10^3/uL (1.5-8.5); NEUTROPHILS % 70.3 % (36.0-66.0); PLATELET COUNT, AUTOMATED 261 10^3/uL (150-450); RED BLOOD COUNT 4.32 10^6/uL (4.30-6.10); WHITE BLOOD COUNT 7.6 10^3/uL (4.0-10.0)
[2020-04-30 07:51] LABS: BLOOD UREA NITROGEN 10 MG/DL (7-18); CARBON DIOXIDE LEVEL 26 MEQ/L (21-32); CHLORIDE LEVEL 110 MEQ/L (98-107); CREATININE FOR GFR 0.93 MG/DL (0.70-1.30); GLOMERULAR FILTRATION RATE > 60.0 (>35); GLUCOSE, FASTING 84 MG/DL (70-100); POTASSIUM SERUM 3.9 MEQ/L (3.5-5.1); SODIUM LEVEL 142 MEQ/L (136-145)
[2020-04-30] MEDS: OMEPRAZOLE 20 MG CAP PO SCH ×2 (08:51→20:47)
[2020-04-30] MEDS: ASPIRIN 81 MG ENTERIC TAB PO SCH (08:51)
[2020-04-30] MEDS: allopurinoL 300 MG TAB PO SCH (08:51)
[2020-04-30] MEDS: FUROSEMIDE 40 MG TAB PO SCH (08:52)
[2020-04-30] MEDS: ENOXAPARIN 40MG/0.4ML SYRINGE (J1650 PER 10MG) SC SCH (08:52)
--- NOTE | 2020-04-30 08:53 | IPNPDOC ---
Subjective Date Seen The patient was seen on 04/30/20. Subjective Chief Complaint/HPI Pt was seen at bedside this am. He is lying in bed this am with no acute complaints. He states that he slept well last night. He states that there's still drainage of pus from his R groin area> L side. States there's tenderness when he presses at the site of the drainage. Denies CP, SOB, abdominal discomfort, fever, chills, n.v.d. Pending H/H for d/c. REVIEW OF SYSTEMS: Constitutional: No fevers, chills, malaise, fatigue ENT/Mouth: No Hearing Changes, No Ear Pain, Nasal Congestion, Sinus Pain, Hoarseness, sore throat, Rhinorrhea, swallowing Difficulty Cardiovascular: Reports some chest pain in center of his chest, off-and-on Respiratory: No Cough, Wheezing, Dyspnea Gastrointestinal: No n/v/d or constipation, No Pain, Heartburn, Anorexia, Dysphagia, Hematochezia, or Melena Genitourinary: No Dysuria Musculoskeletal: No Arthralgias, Myalgias, Joint Swelling, Joint Stiffness, Back Pain,Neck Pain Skin: No Skin Lesions, Some tenderness in bilateral groin at surgical site (R>L) Neuro: No Weakness, Numbness, Paresthesias, Loss of Consciousness, Syncope, Dizziness, Headache,Coordination Changes, Recent Falls Psych: No Anxiety/Panic, Depression, Insomnia, Personality Changes, or Delusions Heme/Lymph: No Bruising, Bleeding,Transfusions History, or Lymphadenopathy Endocrine: No Polyuria, or Polydipsia PHYSICAL EXAM: VITAL SIGNS: Stable. See below GENERAL: alert and oriented, in no apparent distress, pleasant and conversant in full sentences. HEENT: PERRL, EOMI, Oral mucous membranes are moist without lesions. NECK: The patient has no noted JVD. No adenopathy is appreciated. No thyromegaly CHEST/LUNGS: Lungs are clear bilaterally without rhonchi, rales, or wheezes. There is no subcutaneous air appreciated. There is no tenderness to the chest wall. HEART: Regular rate and rhythm. No murmurs, rubs, or gallops are appreciated. Distal pulses are 2+. No carotid bruits appreciated. ABDOMEN: Obese, Soft, nontender, and nondistended. Bowel sounds are positive. No organomegaly is appreciated. No masses are appreciated. There are no peritoneal signs. There is no [place] sign. The area of each surgical site in the R and left groin show closure with oseas and sutures surrounded by erythema and warmth, painful to touch, with some induration EXTREMITIES: There is chronic venous stasis and vascular edema in bilateral lower extremities SKIN: The remainder of the patients skin is warm and dry, without rashes or lesions. PSYCHIATRIC: AAO x 3, normal mood/affect NEUROLOGIC: The patient has 5/5 strength to the upper and lower extremities bilaterally. Sensation is intact throughout. Deep tendon reflexes are 2+ in all four extremities. There are no deficits to the cranial nerves Assessment /Plan Assessment This is an 79 y/o M with history of CAD, AAA s/p recent endovascular repair who presents with fatigue, chest pain and malaise found to be febrile with swelling and erythema in bilateral groin (at surgical site) concerning for postsurgical fever secondary to abdominal wall cellulitis. He's being covered with vancomycin currently and getting wound care per nursing. Plan/VTE VTE Prophylaxis Ordered?: Yes Plan #Surgical site infection -Bilateral groin surgical sites appear erythematous and indurated (R>L) -ESR elevated at 46, CRP 6.96 on admission -Wound Cx grew MRSA and enterococcus faecalis; neg blood cx x2 -Will D/C IV vanco -Will cover enterococcus with amoxicillin and MRSA with bactrim -Pain control 2.5mg Roxicodone q6h PRN #Post-operative fever (Resolved) -Post-op day #9 -Patient remains afebrile; no leukocytosis -Continue incentive spirometry to prevent atelectasis -UA negative for infection -PRN acetaminophen q4h if febrile #s/p AAA repair -CTA negative for endoleak, graft well-placed -[facility] #HTN - Continue home regimen of lopressor, valsartan, amlodipine #Hx of gout - Continue home regimen of Allopurinol #History of CAD s/p CABG and stents -Denies CP -Continue ASA, Pravastatin -minimal troponinemia on admission - trending down #HFprEF -Continue daily Lasix 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 Evans for more adv woundcare. [facility] f[facility]u on . VS, I&O, 24H, Fishbone Vital Signs/I&O Vital Signs Date Time Temp Pulse Resp B/P (MAP) Pulse Ox O2 Delivery O2 Flow Rate FiO2 04/30/20 06:00 97.5 77 18 136/75 (95) 96 Room Air I&O- Last 24 Hours up to 6 AM 04/30/20 06:00 Intake Total 1960 ml Balance 1960 ml Laboratory Data 24H LABS Laboratory Tests 2 04/29/20 10:23: Vancomycin Level Trough 12.9 04/30/20 07:01: Immature Granulocyte % (Auto) 0.5, Neutrophils (%) (Auto) 70.3H, Lymphocytes (%) (Auto) 16.5L, Monocytes (%) (Auto) 7.8H, Eosinophils (%) (Auto) 4.4H, Basophils (%) (Auto) 0.5, Neutrophils # (Auto) 5.3, Lymphocytes # (Auto) 1.3L, Monocytes # (Auto) 0.6, Eosinophils # (Auto) 0.3, Basophils # (Auto) 0.0, Nucleated Red Blood Cells % (auto) 0.0, Anion Gap 6L, Glomerular Filtration Rate > 60.0, Calcium Level 8.0L CBC/BMP Laboratory Tests 04/30/20 07:01 Microbiology Microbiology 04/27/20 Gram Stain - Final, Complete 04/27/20 Wound Culture - Final, Complete Enterococcus Faecalis 04/27/20 Gram Stain - Final, Complete 04/27/20 Wound Culture - Final, Complete Staph.aureus Methicillin Resis 04/27/20 Blood Culture - Preliminary, Resulted No Growth after 72 hours. All specime... 04/26/20 Blood Culture - Preliminary, Resulted No Growth after 72 hours. All specime... GME ATTESTATION GME ATTESTATION My faculty preceptor for this patient encounter was physically present during the encounter and was fully available. All aspects of the patient interview, examination, medical decision making process, and medical care plan development were reviewed and approved by the faculty preceptor. The faculty preceptor is aware and concurs with the plan as stated in the body of this note and will attest to such by his/her cosignature. Charly Ortega DO Apr 30, 2020 08:53
[2020-04-30] MEDS ORDERED: LINE1TAB PO (09:30)
[2020-04-30] MEDS: AMOXICILLIN 500 MG CAP PO SCH ×2 (12:18→20:46)
[2020-04-30] MEDS: BACTRIM 160MG/800MG DS TAB PO SCH ×2 (12:18→20:47)
[2020-04-30 14:00] VITALS: BP 126/76
[2020-04-30] MEDS: DOCUSATE SODIUM 100MG CAPSULE PO SCH (20:46)
[2020-04-30] MEDS: PRAVASTATIN 20 MG TAB PO SCH (20:46)
[2020-04-30] MEDS: VALSARTAN 80 MG TAB (DIOVAN) PO SCH (20:49)
[2020-04-30] MEDS: PARoxetine 20MG TABLET PO SCH (20:50)
[2020-04-30] MEDS: METOPROLOL TART 50 MG TAB PO SCH (20:50)
[2020-04-30] MEDS ORDERED: LINEZOLID 600MG TABLET (ZYVOX) PO SCH (21:00)
[2020-04-30 22:00] VITALS: BP 119/55
[2020-05-01 06:00] VITALS: BP 114/55
[2020-05-01 08:09] LABS: BASO % 0.5 % (0.0-1.0); EOS # 0.3 10^3/uL (0.0-0.5); EOS % 3.4 % (0.0-3.0); HEMOGLOBIN 12.2 g/dl (13.5-17.5); LYMPH # 1.5 10^3/uL (1.5-5.0); LYMPH % 18.4 % (24.0-44.0); MEAN CORPUSCULAR HEMOGLOBIN 27.7 pg (27.0-33.0); MEAN CORPUSCULAR HGB CONC 31.3 g/dl (32.0-36.5); MEAN CORPUSCULAR VOLUME 88.6 fl (80.0-96.0); MONO # 0.6 10^3/uL (0.0-0.8); MONO % 7.3 % (0.0-5.0); NEUTROPHILS # 5.6 10^3/uL (1.5-8.5); PLATELET COUNT, AUTOMATED 273 10^3/uL (150-450)
[2020-05-01 08:27] LABS: BLOOD UREA NITROGEN 9 MG/DL (7-18); CALCIUM LEVEL 8.7 MG/DL (8.8-10.2); CARBON DIOXIDE LEVEL 27 MEQ/L (21-32); CHLORIDE LEVEL 108 MEQ/L (98-107); CREATININE FOR GFR 0.95 MG/DL (0.70-1.30); GLOMERULAR FILTRATION RATE > 60.0 (>35); GLUCOSE, FASTING 92 MG/DL (70-100); MAGNESIUM LEVEL 2.1 MG/DL (1.8-2.4); SODIUM LEVEL 140 MEQ/L (136-145)
[2020-05-01] MEDS: OMEPRAZOLE 20 MG CAP PO SCH ×2 (09:25→21:21)
[2020-05-01] MEDS: BACTRIM 160MG/800MG DS TAB PO SCH ×2 (09:25→21:21)
[2020-05-01] MEDS: allopurinoL 300 MG TAB PO SCH (09:25)
[2020-05-01] MEDS: ENOXAPARIN 40MG/0.4ML SYRINGE (J1650 PER 10MG) SC SCH (09:25)
[2020-05-01] MEDS: ASPIRIN 81 MG ENTERIC TAB PO SCH (09:25)
[2020-05-01] MEDS: FUROSEMIDE 40 MG TAB PO SCH (09:25)
[2020-05-01] MEDS: AMOXICILLIN 500 MG CAP PO SCH ×2 (09:26→21:21)
--- NOTE | 2020-05-01 10:11 | IPNPDOC ---
Subjective Date Seen The patient was seen on 05/01/20. Subjective Chief Complaint/HPI Pt was seen at bedside this am and pleasant this am. He denies any acute events overnight and states that he has slept well last night. He also states that his tenderness in the R groin area is getting better. This a.m the drainage is more seroseguinous instead of yellow pus. The area is still erythematous and indurated, but looks better from the previous day. Denies any CP, SOB, abdominal pain, fever, chills, n/v/d. REVIEW OF SYSTEMS: Constitutional: No fevers, chills, malaise, fatigue ENT/Mouth: No Hearing Changes, No Ear Pain, Nasal Congestion, Sinus Pain, Hoarseness, sore throat, Rhinorrhea, swallowing Difficulty Cardiovascular: Reports some chest pain in center of his chest, off-and-on Respiratory: No Cough, Wheezing, Dyspnea Gastrointestinal: No n/v/d or constipation, No Pain, Heartburn, Anorexia, Dysphagia, Hematochezia, or Melena Genitourinary: No Dysuria Musculoskeletal: No Arthralgias, Myalgias, Joint Swelling, Joint Stiffness, Back Pain,Neck Pain Skin: No Skin Lesions, Some tenderness in bilateral groin at surgical site (R>L) Neuro: No Weakness, Numbness, Paresthesias, Loss of Consciousness, Syncope, Dizziness, Headache,Coordination Changes, Recent Falls Psych: No Anxiety/Panic, Depression, Insomnia, Personality Changes, or Delusions Heme/Lymph: No Bruising, Bleeding,Transfusions History, or Lymphadenopathy Endocrine: No Polyuria, or Polydipsia PHYSICAL EXAM: VITAL SIGNS: Stable. See below GENERAL: alert and oriented, in no apparent distress, pleasant and conversant in full sentences. HEENT: PERRL, EOMI, Oral mucous membranes are moist without lesions. NECK: The patient has no noted JVD. No adenopathy is appreciated. No thyromegaly CHEST/LUNGS: Lungs are clear bilaterally without rhonchi, rales, or wheezes. There is no subcutaneous air appreciated. There is no tenderness to the chest wall. HEART: Regular rate and rhythm. No murmurs, rubs, or gallops are appreciated. Distal pulses are 2+. No carotid bruits appreciated. ABDOMEN: Obese, Soft, nontender, and nondistended. Bowel sounds are positive. No organomegaly is appreciated. No masses are appreciated. There are no peritoneal signs. There is no [place] sign. The area of each surgical site in the R and left groin show closure with oseas and sutures surrounded by erythema and warmth, less painful/tenderness with touch. Still erythematous and indurated site R>L; serosingous drainage more than yellow pus today. EXTREMITIES: There is chronic venous stasis and vascular edema in bilateral lower extremities SKIN: The remainder of the patients skin is warm and dry, without rashes or lesions. PSYCHIATRIC: AAO x 3, normal mood/affect NEUROLOGIC: The patient has 5/5 strength to the upper and lower extremities bilaterally. Sensation is intact throughout. Deep tendon reflexes are 2+ in all four extremities. There are no deficits to the cranial nerves IMAGING: NONE new LABS: see below Assessment /Plan Assessment This is an 79 y/o M with history of CAD, AAA s/p recent endovascular repair who presents with fatigue, chest pain and malaise found to be febrile with swelling and erythema in bilateral groin (at surgical site) concerning for postsurgical fever secondary to abdominal wall cellulitis. He was initially covered with vanco and zosyn until his wound cx and grain stain came back showing MRSA and enterococcus faecalis and negative blood cx x2. His abx is deescalated to amoxicillin to cover the enterococcus and Bactrim to cover for MRSA. He's had drainage of pus which is resolving slowly and now there's more serosanguineous drainage instead. #Surgical site infection -Bilateral groin surgical sites appear erythematous and indurated (R>L) -Draining less pus; seroseguinous drainage -Wound Cx grew MRSA and enterococcus faecalis -Continue amoxicillin and bactrim -Blood cx x2 negative -Pain control 2.5mg Roxicodone q6h PRN -Consultation Dr. Evans (adv wound care) - pending telemedicine consultation- greatly appreciate recommendations #Post-operative fever (Resolved) -Post-op day #10 -Patient remains afebrile; no leukocytosis -Continue incentive spirometry to prevent atelectasis -UA negative for infection -PRN acetaminophen q4h if febrile #s/p AAA repair -CTA negative for endoleak, stent well-placed -[facility] -Pt has [facility] f[facility]u this upcoming #HTN - Continue home regimen of lopressor, valsartan, amlodipine #Hx of gout - Continue home regimen of Allopurinol #History of CAD s/p CABG and stents -Denies CP -Continue ASA, Pravastatin -minimal troponinemia on admission - trending down #HFprEF -Continue daily Lasix 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 Evans); [facility] followup tentative this . Likely D/C after wound care recs either today or tomorrow. Plan/VTE VTE Prophylaxis Ordered?: Yes VS, I&O, 24H, Fishbone Vital Signs/I&O Vital Signs Date Time Temp Pulse Resp B/P (MAP) Pulse Ox O2 Delivery O2 Flow Rate FiO2 05/01/20 06:00 96.7 58 18 114/55 (74) 94 Room Air I&O- Last 24 Hours up to 6 AM 05/01/20 06:00 Intake Total 1320 ml Output Total 0 ml Balance 1320 ml Laboratory Data 24H LABS Laboratory Tests 2 05/01/20 07:42: Immature Granulocyte % (Auto) 0.4, Neutrophils (%) (Auto) 70.0H, Lymphocytes (%) (Auto) 18.4L, Monocytes (%) (Auto) 7.3H, Eosinophils (%) (Auto) 3.4H, Basophils (%) (Auto) 0.5, Neutrophils # (Auto) 5.6, Lymphocytes # (Auto) 1.5, Monocytes # (Auto) 0.6, Eosinophils # (Auto) 0.3, Basophils # (Auto) 0.0, Nucleated Red Blood Cells % (auto) 0.0, Anion Gap 5L, Glomerular Filtration Rate > 60.0, Calcium Level 8.7L, Magnesium Level 2.1 CBC/BMP Laboratory Tests 05/01/20 07:42 Microbiology Microbiology 04/27/20 Gram Stain - Final, Complete 04/27/20 Wound Culture - Final, Complete Enterococcus Faecalis 04/27/20 Gram Stain - Final, Complete 04/27/20 Wound Culture - Final, Complete Staph.aureus Methicillin Resis 04/27/20 Blood Culture - Preliminary, Resulted No Growth after 72 hours. All specime... 04/26/20 Blood Culture - Preliminary, Resulted No Growth after 72 hours. All specime... GME ATTESTATION GME ATTESTATION My faculty preceptor for this patient encounter was physically present during the encounter and was fully available. All aspects of the patient interview, examination, medical decision making process, and medical care plan development were reviewed and approved by the faculty preceptor. The faculty preceptor is aware and concurs with the plan as stated in the body of this note and will attest to such by his/her cosignature. ATTENDING NOTE I, Ray Crawley, have independently examined this patient and performed my own physical exam, as well as reviewed the documentation and edited where necessary. I have discussed in detail with the resident / student the findings and plan of treatment as documented by the resident / student and edited their note. I agree with their findings and treatment plan and have edited their documentation. I will continue to follow the patient during this hospital stay. Chraly Ortega DO May 01, 2020 10:11 RAY CRAWLEY MD May 01, 2020 14:43
[2020-05-01 14:00] VITALS: BP 100/54
--- NOTE | 2020-05-01 18:29 | CR ---
CONSULTATION DATE: 05/01/2020 CONSULT REQUESTED BY: Per Campos M.D. REASON FOR CONSULTATION: Advanced wound care consult via telemedicine regarding postoperative right and left groin wounds. HISTORY OF PRESENT ILLNESS: This 79-year-old obese male treated at the [facility] for an infrarenal abdominal aortic aneurysm measuring 5.9 cm, treated with a percutaneous expandable aortic stent. This was successful. Also according to the brief transfer note, the patient had bilateral iliac artery stents inserted. No mention of a bypass graft was noted. Surprisingly, the patient has bilateral vertical incisions over the femoral arteries. Without an operative note, it is unclear why this was required ie. surgical incisions; however, it should be noted that the patient is morbidly obese and has a large abdominal wall pannus, which may have made identification and access to the arteries difficult. In any event, the patient was hospitalized at [facility] due to deterioration of the wounds, as evidenced by ischemic necrosis at the suture lines and drainage of serous fluid. No bleeding has been noted. The patient has mild erythema involving the infra abdominal pannus region of his skin. The patient is scheduled to follow up with vascular surgery in [place] on 05/03/2020. RECOMMENDATIONS: In terms of wound recommendations, the wounds should be cleaned with Vashe wound cleanser and then Hydrofera Blue Ready foam should be applied as the dressing to cover the incision line. Since the patient is being followed in [place] in 48 hours extensive workup will not be performed. The patient will need to have sutures removed and any seroma or serous fluid evacuated so that the dressings, such as Hydrofera Blue or Drawtex can be in direct contact with the underlying incisional wounds.. I would assume from the brief report that there was no aortic graft with anastomosis in either right or left inguinal regions as there is no abdominal incision. However, without an operative note, this cannot be said for sure. Once he has been evaluated by his vascular surgeon in [place], depending upon their recommendations and treatment the patient can be followed here at our wound center if he desires. It should be noted that he is afebrile with a normal white count. Has been started on prophylactic IV antibiotics, which can be converted to oral. He is ambulatory without any claudication and/or symptoms. There is no evidence of pseudoaneurysm or bleeding from either incision site. The patient originally was started on vancomycin and has been converted to amoxicillin and Bactrim will be added according to the physicians taking care of him. HUYD
[2020-05-01 21:00] VITALS: BP 109/47
[2020-05-01] MEDS: VALSARTAN 80 MG TAB (DIOVAN) PO SCH (21:00)
[2020-05-01] MEDS: METOPROLOL TART 50 MG TAB PO SCH (21:00)
[2020-05-01] MEDS: PARoxetine 20MG TABLET PO SCH (21:22)
[2020-05-01] MEDS: PRAVASTATIN 20 MG TAB PO SCH (21:22)
[2020-05-01] MEDS: DOCUSATE SODIUM 100MG CAPSULE PO SCH (21:22)
[2020-05-01 22:00] VITALS: BP 109/47
[2020-05-02 06:00] VITALS: BP 129/59
[2020-05-02 08:10] LABS: BLOOD UREA NITROGEN 13 MG/DL (7-18); CALCIUM LEVEL 8.7 MG/DL (8.8-10.2); CARBON DIOXIDE LEVEL 27 MEQ/L (21-32); CHLORIDE LEVEL 110 MEQ/L (98-107); CREATININE FOR GFR 1.07 MG/DL (0.70-1.30); GLOMERULAR FILTRATION RATE > 60.0 (>35); GLUCOSE, FASTING 94 MG/DL (70-100); MAGNESIUM LEVEL 2.1 MG/DL (1.8-2.4); POTASSIUM SERUM 4.1 MEQ/L (3.5-5.1); SODIUM LEVEL 141 MEQ/L (136-145)
[2020-05-02 08:14] LABS: BASO % 0.5 % (0.0-1.0); EOS # 0.3 10^3/uL (0.0-0.5); EOS % 3.7 % (0.0-3.0); HEMATOCRIT 38.4 % (42.0-52.0); HEMOGLOBIN 12.1 g/dl (13.5-17.5); LYMPH # 1.3 10^3/uL (1.5-5.0); MEAN CORPUSCULAR HEMOGLOBIN 28.1 pg (27.0-33.0); MEAN CORPUSCULAR HGB CONC 31.5 g/dl (32.0-36.5); MEAN CORPUSCULAR VOLUME 89.1 fl (80.0-96.0); MONO # 0.5 10^3/uL (0.0-0.8); MONO % 6.9 % (0.0-5.0); NEUTROPHILS # 5.4 10^3/uL (1.5-8.5); NEUTROPHILS % 71.4 % (36.0-66.0); PLATELET COUNT, AUTOMATED 257 10^3/uL (150-450); RED BLOOD COUNT 4.31 10^6/uL (4.30-6.10); WHITE BLOOD COUNT 7.6 10^3/uL (4.0-10.0)
[2020-05-02] MEDS: FUROSEMIDE 40 MG TAB PO SCH (08:46)
[2020-05-02] MEDS: ASPIRIN 81 MG ENTERIC TAB PO SCH (08:46)
[2020-05-02] MEDS: allopurinoL 300 MG TAB PO SCH (08:46)
[2020-05-02] MEDS: ENOXAPARIN 40MG/0.4ML SYRINGE (J1650 PER 10MG) SC SCH (08:46)
[2020-05-02] MEDS: BACTRIM 160MG/800MG DS TAB PO SCH (08:46)
[2020-05-02] MEDS: AMOXICILLIN 500 MG CAP PO SCH (08:46)
[2020-05-02] MEDS: OMEPRAZOLE 20 MG CAP PO SCH (08:46)
--- NOTE | 2020-05-02 08:53 | DS.PDOC ---
Discharge Summary General Date of Admission Apr 27, 2020 at 01:53 Date of Discharge 05/02/2020 Primary Care Physician: Kian Cortés MD Attending Physician: RAY GUZMAN MD Specialist/Consultants Involve: Leo Evans MD Discharge Summary PROCEDURES PERFORMED DURING STAY: [None]. ADMITTING DIAGNOSES: 1. weakness, fever DISCHARGE DIAGNOSES: 1. abdominal wall cellulitis s/p surgery from [place] COMPLICATIONS/CHIEF COMPLAINT: Abdominal Wall Cellulitis, Postop Fever. HISTORY OF PRESENT ILLNESS: Jorge Sanabria is an 79 YO M with history of CAD, AAA s/p endovascular stent placed one week ago who presents with several days c hest pain, fatigue, abdominal pain and fever. His procedure was reportedly without complication and he was discharged home on the next day. The patient reports that since his surgery on 04/20/20 the patient has not been feeling "himself" at home. He has spent most of the day sleeping and has not been eating or drinking very much. The patient has also been complaining of chest pain in the center of his chest but tells me "it's been like that off and on for years." Speaking to his daughter Alvina, she has not checked the patient's temperature at home but states he feels subjectively hot and has chills. Otherwise, the patient denies any cough, no nausea/vomiting and has had normal bowel movements. He also denies any dysuria. In the ED, the patient was found to have initial oral temperature 101.5. He was given empiric Vancomycin and IV fluids HOSPITAL COURSE: He was initially started on vanco/zosyn while a wound cx and gram stain was sent out; the results came back with enterococcus faecalis and methacillin resistant Staph Aeures. We de-escalated his abx to amoxcillin to cover the entercocuss and bactrim to cover MRSA. His blood cx x2 were both negative. His wound was draining yellow pus; however, it continued to improve from day to day to eventually draining a seroseginous colored fluid. Dr. Evans (contract specialist) was consulted and per his recommendations, hydrofera blue on the underlying incisional wounds was applied. Pt's was informed over the phone about his care and patient was informed every step of the way of his hospital course as well. Upon discharge, patient's afebrile with normal white count and stable labs. He will be d/c'd with amoxicillin and bactr im to take for a total course of 14 days. Pt is instructed to follow up with his vascular surgeon tomorrow at the [facility] and with his PCP within 3-5 days of hospital discharge. DISCHARGE MEDICATIONS: Please see below. ALLERGIES: Please see below. PHYSICAL EXAMINATION ON DISCHARGE: VITAL SIGNS: Stable. See below GENERAL: alert and oriented, in no apparent distress, pleasant and conversant in full sentences. HEENT: PERRL, EOMI, Oral mucous membranes are moist without lesions. NECK: The patient has no noted JVD. No adenopathy is appreciated. No thyromegaly CHEST/LUNGS: Lungs are clear bilaterally without rhonchi, rales, or wheezes. There is no subcutaneous air appreciated. There is no tenderness to the chest wall. HEART: Regular rate and rhythm. No murmurs, rubs, or gallops are appreciated. D istal pulses are 2+. No carotid bruits appreciated. ABDOMEN: Obese, Soft, nontender, and nondistended. Bowel sounds are positive. No organomegaly is appreciated. No masses are appreciated. There are no peritoneal signs. There is no [place] sign. The area of each surgical site in the R and left groin show closure with oseas and sutures surrounded by erythema and warmth, less painful/tenderness with touch. Erythematous and indurated site R>L; much improved and less tender EXTREMITIES: There is chronic venous stasis and vascular edema in bilateral lower extremities SKIN: The remainder of the patients skin is warm and dry, without rashes or lesions. PSYCHIATRIC: AAO x 3, normal mood/affect NEUROLOGIC: The patient has 5/5 strength to the upper and lower extremities bilaterally. Sensation is intact throughout. Deep tendon reflexes are 2+ in all four extremities. There are no deficits to the cranial nerves LABORATORY DATA: Please see below. IMAGING: Bilat LE u/s: No definite DVT visualized Abd/pelvis CT: 1. 5.1 x 5.1 cm infrarenal abdominal aortic aneurysm with patent aortoiliac stent graft. No evidence of rupture, dissection or endovascular leak . 2. Bilateral inguinal surgical clips. There are fluid collections anterior to the femoral vessels and within the subcutaneous fat. These could represent subacute hematomas. No evidence acute hemorrhage or contrast extravasation. 3. Cholelithiasis. 4. Diverticulosis. No acute inflammatory findings. Chest CT: 1. Ectatic proximal aorta measuring up to 4.3 cm. No change from prior scan. No rupture or dissection. 2. Right middle lobe nodules are stable compared with prior scan. No further imaging required as per Fleischner protocol. PROGNOSIS: Fair ACTIVITY: As tolerated DIET: 2g Na DISCHARGE PLAN: Pt will follow up with [facility] physician tomorrow afternoon 05/03/2020 DISCHARGE INSTRUCTIONS: 1. F/u with vascular surgeon at [facility] on 05/03 2. F/u with PCP within 3-5 days of hospital discharge 3. Take Amoxicillin and Bactrim for a total of 14 day course. 4. Return to the ER if you experience any problems DISCHARGE CONDITION: Fair TIME SPENT ON DISCHARGE: 45 minutes. Vital Signs/I&Os Vital Signs Date Time Temp Pulse Resp B/P (MAP) Pulse Ox O2 Delivery O2 Flow Rate FiO2 05/02/20 06:00 98.7 59 18 129/59 (82) 95 Room Air I&O- Last 24 Hours up to 6 AM 05/02/20 06:00 Intake Total 1060 ml Output Total 0 ml Balance 1060 ml Laboratory Data Labs 24H Laboratory Tests 2 05/02/20 07:26: Immature Granulocyte % (Auto) 0.5, Neutrophils (%) (Auto) 71.4H, Lymphocytes (%) (Auto) 17.0L, Monocytes (%) (Auto) 6.9H, Eosinophils (%) (Auto) 3.7H, Basophils (%) (Auto) 0.5, Neutrophils # (Auto) 5.4, Lymphocytes # (Auto) 1.3L, Monocytes # (Auto) 0.5, Eosinophils # (Auto) 0.3, Basophils # (Auto) 0.0, Nucleated Red Blood Cells % (auto) 0.0, Anion Gap 4L, Glomerular Filtration Rate > 60.0, Calcium Level 8.7L, Magnesium Level 2.1 CBC/BMP Laboratory Tests 05/02/20 07:26 Microbiology Microbiology 04/27/20 Gram Stain - Final, Complete 04/27/20 Wound Culture - Final, Complete Enterococcus Faecalis 04/27/20 Gram Stain - Final, Complete 04/27/20 Wound Culture - Final, Complete Staph.aureus Methicillin Resis 04/27/20 Blood Culture - Final, Complete NO GROWTH AFTER 5 DAYS 04/26/20 Blood Culture - Final, Complete NO GROWTH AFTER 5 DAYS Discharge Medications Scheduled Allopurinol (Zyloprim) 300 Mg Tab, 300 MG PO DAILY, (Reported) Amlodipine Besylate (Amlodipine Besylate) 2.5 Mg Tab, 2.5 MG PO QHS, (Reported) Amoxicillin (Amoxicillin) 500 Mg Capsule, 500 MG PO BID Take 500mg PO BID for 11 more days and follow up with PCP Aspirin (Aspirin EC) 81 Mg Tab, 81 MG PO DAILY, (Reported) Cyanocobalamin (Vitamin B-12) (Vitamin B-12) 1,000 Mcg Tablet, 1,000 MCG PO QHS, (Reported) Docusate Sodium (Colace) 100 Mg Capsule, 100 MG PO QHS, (Reported) Ergocalciferol (Vitamin D2) (Vitamin D2) 50,000 Units Cap, 50,000 UNITS PO QWEEK, (Reported) FRIDAYS Ferrous Sulfate (Ferrous Sulfate) 324 Mg Tablet.dr, 324 MG PO DAILY, (Reported) Furosemide (Furosemide) 40 Mg Tablet, 40 MG PO DAILY, (Reported) Linezolid (Linezolid) 600 Mg Tablet, 1 TAB PO BID Metoprolol Tartrate (Lopressor) 50 Mg Tablet, 25 MG PO QHS, (Reported) Omeprazole (Omeprazole) 20 Mg Cap, 20 MG PO BID, (Reported) Paroxetine HCl (Paroxetine HCl) 40 Mg Tab, 20 MG PO QHS, (Reported) Potassium Chloride (Potassium Chloride) 20 Meq Tab.er.prt, 20 MEQ PO QHS, (Reported) Pravastatin Sodium (Pravastatin Sodium) 80 Mg Tab, 80 MG PO QHS, (Reported) Sulfamethoxazole/Trimethoprim (Sulfamethoxazole-Tmp Ds Tablet) 1 Each Tablet, 1 TAB PO BID take for 11 more days and follow up with PCP Valsartan (Diovan) 80 Mg Tab, 80 MG PO QHS, (Reported) Scheduled PRN Nitroglycerin (Nitrostat) 0.4 Mg Subl, 0.4 MG SL NITRO PRN for CHEST PAIN, (Reported) Oxycodone HCl (Oxycodone HCl) 5 Mg Tablet, 2.5 MG PO Q6H PRN for PAIN, (Reported) Allergies Coded Allergies: niacin (Verified Allergy, Intermediate, swelling, 10/29/18) clopidogrel (Verified Adverse Reaction, Severe, rectal and penile bleeding, 04/26/20) lisinopril (Verified Adverse Reaction, Intermediate, cough, 10/29/18) simvastatin (Verified Adverse Reaction, Intermediate, headaches, 10/29/18) spironolactone (Verified Adverse Reaction, Intermediate, breast enlargement, 04/26/20) meloxicam (Verified Adverse Reaction, Unknown, bleeding ulcer, 04/26/20) GME ATTESTATION GME ATTESTATION My faculty preceptor for this patient encounter was physically present during the encounter and was fully available. All aspects of the patient interview, examination, medical decision making process, and medical care plan development were reviewed and approved by the faculty preceptor. The faculty preceptor is aware and concurs with the plan as stated in the body of this note and will attest to such by his/her cosignature. ATTENDING NOTE I, Ray Guzman, have independently examined this patient and performed my own physical exam, as well as reviewed the documentation and edited where necessary. I have discussed in detail with the resident / student the findings and plan of treatment as documented by the resident / student and edited their note. I agree with their findings and treatment plan and have edited their documentation. I will continue to follow the patient during this hospital stay. Time spent on discharge 37 minutes Charly Ortega DO May 02, 2020 08:53 RAY GUZMAN MD May 02, 2020 16:02
[2020-05-02] MEDS ORDERED: SULF1TAB93 PO (08:58)
[2020-05-02] MEDS ORDERED: AMOX500C PO (08:58)
== END 2020-05-02 12:35 | disposition home or self-care (01) | DRG 864 ==
LOC: EDBD 16:59 → M ED 16:59 → EEVIPCON 04-27 01:53 → M ED INP 04-27 01:53 → M MS5PR 04-27 04:50
PROVIDERS: ADMIT Family Medicine; ATTEND Internal Medicine
DX: R50.82 Postprocedural fever (principal); L03.311 Cellulitis of abdominal wall; I50.32 Chronic diastolic (congestive) heart failure; I25.10 Atherosclerotic heart disease of native coronary artery without angina pectoris; Z79.82 Long term (current) use of aspirin; Z79.899 Other long term (current) drug therapy; Z88.8 Allergy status to other drugs, medicaments and biological substances; E78.5 Hyperlipidemia, unspecified; J44.9 Chronic obstructive pulmonary disease, unspecified; E55.9 Vitamin D deficiency, unspecified; G47.33 Obstructive sleep apnea (adult) (pediatric); M10.9 Gout, unspecified; K22.70 Barrett's esophagus without dysplasia; Z96.651 Presence of right artificial knee joint

== ENCOUNTER → 2020-07-05 | Outpatient (CLI) | payer MEDICARE ==
[~2020-07-05] MED LIST changes: +AMOX500C PO; +B-12100011 SL; +COLA100C5 PO; +CYAN100050 PO; +FERR324T2 PO; +LINE1TAB PO; +LOPR1TAB6 PO; +OXYC-517 PO; +POTA20TA6 PO; +SULF1TAB93 PO; +VITA50005 PO
[2020-07-05 12:51] LABS: BLOOD UREA NITROGEN 14 MG/DL (7-18); CALCIUM LEVEL 8.8 MG/DL (8.8-10.2); CARBON DIOXIDE LEVEL 29 MEQ/L (21-32); CHLORIDE LEVEL 109 MEQ/L (98-107); GLOMERULAR FILTRATION RATE > 60.0 (>35); GLUCOSE, FASTING 90 MG/DL (70-100); POTASSIUM SERUM 4.4 MEQ/L (3.5-5.1); SODIUM LEVEL 143 MEQ/L (136-145)
== END ==
LOC: M LAB 11:02
PROVIDERS: ATTEND Physician Assistant
DX: I50.32 Chronic diastolic (congestive) heart failure (principal)

== ENCOUNTER → 2020-08-03 | Outpatient (REF) | payer MEDICARE | LOC: M LAB REF 17:09 | PROVIDERS: ATTEND Dermatology | DX: D04.62 Carcinoma in situ of skin of left upper limb, including shoulder (principal) | CPT/HCPCS: 11102; 17000; 17003; 88305; G0463 ==

== ENCOUNTER → 2020-11-05 | Outpatient (CLI) | payer MEDICARE ==
[~2020-11-05] MED LIST changes: +BACTDSTA PO; +ERGO500029 PO; -SULF1TAB93 PO; -VITA50005 PO
--- NOTE | 2020-11-05 15:28 | REP ---
INDICATION: THORACIC AORTIC ANEURYSM WITHOU RUPTURE COMPARISON: Multiple the latest 04/26/2020 a contrast-enhanced exam TECHNIQUE: Standard helical technique without intravenous contrast administration FINDINGS: The maximal AP dimension of the ascending aorta is 4.6 cm. This previously measured 4.3 cm. Limited noncontrast enhanced evaluation of the thoracic aorta shows no other significant changes. There is no evidence of mediastinal or hilar adenopathy. There are no pleural or pericardial effusions. There is no significant change in the appearance of the imaged upper abdomen. The proximal portion of an abdominal aortoiliac stent graft is again identified. There multiple hepatic cyst which appears stable. There is cholelithiasis which is known. There is no significant change in the appearance of the imaged osseous structures. Evaluation of the lung jennings shows an unchanged nodule in the right middle lobe. No new abnormal nodules, masses, or opacities have developed. IMPRESSION: 1. Evidence of a slight increase in size in the AP dimension of the ascending thoracic aorta as described above seen on this limited noncontrast enhanced exam. 2. Stable right middle lobe lung nodule. 3. Other findings as described above. <Electronically signed by Eddy Price > 11/05/20 152
== END ==
LOC: M RAD 14:28
PROVIDERS: ATTEND Physician Assistant
DX: I71.2 Thoracic aortic aneurysm, without rupture (principal)

== ENCOUNTER → 2020-11-19 | Outpatient (CLI) | payer MEDICARE ==
[2020-11-19 13:54] LABS: BLOOD UREA NITROGEN 11 MG/DL (7-18); CALCIUM LEVEL 8.5 MG/DL (8.8-10.2); CARBON DIOXIDE LEVEL 31 MEQ/L (21-32); CHLORIDE LEVEL 110 MEQ/L (98-107); CREATININE FOR GFR 0.95 MG/DL (0.70-1.30); GLOMERULAR FILTRATION RATE > 60.0 (>35); GLUCOSE, FASTING 107 MG/DL (70-100); MAGNESIUM LEVEL 1.8 MG/DL (1.8-2.4); POTASSIUM SERUM 3.9 MEQ/L (3.5-5.1); SODIUM LEVEL 143 MEQ/L (136-145)
== END ==
LOC: M LAB 13:00
PROVIDERS: ATTEND Physician Assistant
DX: I50.32 Chronic diastolic (congestive) heart failure (principal); Z79.82 Long term (current) use of aspirin

== ENCOUNTER → 2021-02-02 | Outpatient (CLI) | payer MEDICARE ==
[~2021-02-02] MED LIST changes: -KLOR10TA76 PO; -KLOR20TA42 PO; +POTA-136 PO; +POTA-141 PO
[2021-02-02 13:28] LABS: BLOOD UREA NITROGEN 12 MG/DL (7-18); CARBON DIOXIDE LEVEL 29 MEQ/L (21-32); CHLORIDE LEVEL 107 MEQ/L (98-107); CREATININE FOR GFR 1.13 MG/DL (0.70-1.30); GLOMERULAR FILTRATION RATE > 60.0 (>35); GLUCOSE, FASTING 98 MG/DL (70-100); MAGNESIUM LEVEL 1.9 MG/DL (1.8-2.4); POTASSIUM SERUM 4.4 MEQ/L (3.5-5.1); SODIUM LEVEL 142 MEQ/L (136-145)
== END ==
LOC: M LAB 12:23
PROVIDERS: ATTEND Physician Assistant
DX: I50.32 Chronic diastolic (congestive) heart failure (principal); I49.01 Ventricular fibrillation

== ENCOUNTER → 2021-05-07 | Outpatient (CLI) | payer OTHER ==
--- NOTE | 2021-05-07 15:23 | REPVR ---
PROCEDURE INFORMATION: Exam: CT Cervical Spine Without Contrast Exam date and time: 05/07/2021 2:34 PM Age: 80 years old Clinical indication: Radicular pain (radiculopathy); Location of radicular pain not specified; Additional info: Worsening upper ext radiculopathy TECHNIQUE: Imaging protocol: Computed tomography images of the cervical spine without contrast. Radiation optimization: All CT scans at this facility use at least one of these dose optimization techniques: automated exposure control; mA and/or kV adjustment per patient size (includes targeted exams where dose is matched to clinical indication); or iterative reconstruction. COMPARISON: None provided. FINDINGS: Tubes, catheters and devices: Left-sided cardiac AICD is present. Vertebrae: Vertebral body heights are intact. Alignment is maintained. There are productive changes about the dens. No acute fracture is identified. C1-C2: Discs/Spinal canal/Neural foramina: There is multilevel spondylosis with variable osteophytic encroachment of several neural foramina. C2-C3: Disc osteophyte complex with apparent mild bilateral neural foraminal narrowing and borderline spinal stenosis. C3-C4: Disc osteophyte complex with apparent mild bilateral neural foraminal narrowing and spinal stenosis. C4-C5: Disc osteophyte complex with apparent mild right and moderate left neural foraminal narrowing and spinal stenosis. C5-C6: Disc osteophyte complex with apparent mild right and moderate left neural foraminal narrowing and spinal stenosis. C6-C7: Disc osteophyte complex with apparent very mild right and mild left neural foraminal narrowing and borderline spinal stenosis. C7-T1: Small osteophytic ridge with apparent very mild bilateral neural foraminal narrowing. Other bones/joints: The bones appear osteopenic. Soft tissues: The prevertebral soft tissues are not significantly swollen. Vasculature: Atherosclerotic vascular calcifications are noted. Lungs: Visualized lung apices are clear. Pleural space: No apical pneumothorax is identified. IMPRESSION: 1. Spondylosis with apparent disc displacements as described. 2. Apparent osteopenia. Electronically signed by: Skyler Lynne On 05/07/2021 15:23:19 PM
== END ==
LOC: M RAD 14:00
PROVIDERS: ATTEND Nurse Practitioner Family
DX: M54.11 Radiculopathy, occipito-atlanto-axial region (principal)

== ENCOUNTER → 2021-06-10 | Outpatient (CLI) | payer MEDICARE, OTHER ==
[~2021-06-10] MED LIST changes: +POTA-151 PO; -POTA20TA6 PO
[2021-06-10 11:04] LABS: BLOOD UREA NITROGEN 13 MG/DL (7-18); CALCIUM LEVEL 8.8 MG/DL (8.8-10.2); CARBON DIOXIDE LEVEL 25 MEQ/L (21-32); CHLORIDE LEVEL 110 MEQ/L (98-107); CREATININE FOR GFR 0.96 MG/DL (0.70-1.30); GLOMERULAR FILTRATION RATE > 60.0 (>35); GLUCOSE, FASTING 100 MG/DL (70-100); MAGNESIUM LEVEL 1.9 MG/DL (1.8-2.4); POTASSIUM SERUM 4.1 MEQ/L (3.5-5.1); SODIUM LEVEL 142 MEQ/L (136-145)
== END ==
LOC: M LAB 08:40
PROVIDERS: ATTEND Physician Assistant
DX: I50.32 Chronic diastolic (congestive) heart failure (principal); I49.01 Ventricular fibrillation

== ENCOUNTER → 2021-08-05 | Outpatient (CLI) | payer MEDICARE ==
[2021-08-05 13:07] LABS: BLOOD UREA NITROGEN 13 MG/DL (7-18); CARBON DIOXIDE LEVEL 31 MEQ/L (21-32); CHLORIDE LEVEL 111 MEQ/L (98-107); CREATININE FOR GFR 1.01 MG/DL (0.70-1.30); GLOMERULAR FILTRATION RATE > 60.0 (>35); GLUCOSE, FASTING 88 MG/DL (70-100); MAGNESIUM LEVEL 1.9 MG/DL (1.8-2.4); POTASSIUM SERUM 4.4 MEQ/L (3.5-5.1); SODIUM LEVEL 145 MEQ/L (136-145)
== END ==
LOC: M LAB 10:53
PROVIDERS: ATTEND Physician Assistant
DX: I50.32 Chronic diastolic (congestive) heart failure (principal)

== ENCOUNTER 2021-10-27 16:14 | Observation (INO) | payer MEDICARE ==
[~2021-10-27] VITALS: Ht 175.3 cm; Wt 119.1 kg
[2021-10-27 19:23] LABS: BASO % 0.4 % (0.0-1.0); EOS # 0.2 10^3/uL (0.0-0.5); EOS % 3.4 % (0.0-3.0); HEMATOCRIT 47.8 % (42.0-52.0); HEMOGLOBIN 16.2 g/dl (13.5-17.5); LYMPH % 29.1 % (24.0-44.0); MEAN CORPUSCULAR HEMOGLOBIN 29.7 pg (27.0-33.0); MEAN CORPUSCULAR HGB CONC 33.9 g/dl (32.0-36.5); MEAN CORPUSCULAR VOLUME 87.5 fl (80.0-96.0); MONO # 0.5 10^3/uL (0.0-0.8); MONO % 7.2 % (2.0-8.0); NEUTROPHILS # 4.1 10^3/uL (1.5-8.5); NEUTROPHILS % 59.6 % (36.0-66.0); PLATELET COUNT, AUTOMATED 157 10^3/uL (150-450); RED BLOOD COUNT 5.46 10^6/uL (4.30-6.10); WHITE BLOOD COUNT 6.9 10^3/uL (4.0-10.0)
[2021-10-27 19:35] LABS: INR 0.99; PROTHROMBIN TIME 13.5 SECONDS (12.7-14.5)
[2021-10-27 19:36] LABS: PARTIAL THROMBOPLASTIN TIME 30.9 SECONDS (25.9-37.0)
[2021-10-27 19:56] LABS: ALBUMIN 3.5 GM/DL (3.2-5.2); ALT/SGPT 15 U/L (12-78); BILIRUBIN,DIRECT 0.1 MG/DL (0.0-0.2); BILIRUBIN,TOTAL 0.5 MG/DL (0.2-1.0); BLOOD UREA NITROGEN 10 MG/DL (7-18); CALCIUM LEVEL 8.7 MG/DL (8.8-10.2); CARBON DIOXIDE LEVEL 27 MEQ/L (21-32); CHLORIDE LEVEL 109 MEQ/L (98-107); CREATININE FOR GFR 0.95 MG/DL (0.70-1.30); FREE T4 0.94 NG/DL (0.76-1.46); GLOMERULAR FILTRATION RATE > 60.0 (>35); GLUCOSE, FASTING 82 MG/DL (70-100); NT-PRO BNP 729 PG/ML (<450); POTASSIUM SERUM 4.4 MEQ/L (3.5-5.1); SODIUM LEVEL 140 MEQ/L (136-145); TOTAL PROTEIN 7.3 GM/DL (6.4-8.2)
[2021-10-27 20:12] LABS: ERYTHROCYTE SEDIMENTATION RATE 4 mm/hr (0-20)
[2021-10-27] MEDS ORDERED: VALSARTAN 80 MG TAB (DIOVAN) PO ONE (20:45)
[2021-10-27] MEDS ORDERED: amLODIPine 5 MG TAB PO ONE ×2 (20:45→23:20)
[2021-10-27] MEDS ORDERED: FUROSEMIDE 40MG/4ML VIAL (J1940) IV ONE (20:45)
[2021-10-27] MEDS ORDERED: ALLO300T2 PO (21:26)
[2021-10-27] MEDS ORDERED: FERR324T21 PO (21:26)
[2021-10-27] MEDS ORDERED: HOME MED LIST COMPLETE! XX SCH (21:30)
[2021-10-27 22:24] LABS: RSV AMPLIFICATION NEGATIVE (NEGATIVE)
[2021-10-27] MEDS ORDERED: NITROGLYCERIN 0.4 MG SUBL TABLET SL PRN (23:20)
[2021-10-28] MEDS ORDERED: PILL CUTTER 1 EACH XX ONE (00:10)
[2021-10-28] MEDS: DOXYCYCLINE HYCLATE 100MG TABLET PO SCH ×2 (00:14→09:47)
[2021-10-28 07:15] LABS: BLOOD UREA NITROGEN 9 MG/DL (7-18); CALCIUM LEVEL 8.5 MG/DL (8.8-10.2); CARBON DIOXIDE LEVEL 30 MEQ/L (21-32); CHLORIDE LEVEL 107 MEQ/L (98-107); CREATININE FOR GFR 1.15 MG/DL (0.70-1.30); GLOMERULAR FILTRATION RATE > 60.0 (>35); GLUCOSE, FASTING 94 MG/DL (70-100); POTASSIUM SERUM 3.9 MEQ/L (3.5-5.1); SODIUM LEVEL 141 MEQ/L (136-145)
[2021-10-28] MEDS ORDERED: FERROUS GLUCONATE 324 MG TAB PO SCH (09:00)
[2021-10-28] MEDS ORDERED: OMEPRAZOLE 20MG CAP PO SCH (09:00)
[2021-10-28] MEDS ORDERED: FUROSEMIDE 40 MG TAB PO SCH (09:00)
[2021-10-28] MEDS ORDERED: HEPARIN SOD (PORCINE) 5000UNITS/ML 1ML VIAL/SYRINGE SC SCH (09:00)
[2021-10-28] MEDS ORDERED: allopurinoL 300 MG TAB PO SCH (09:00)
[2021-10-28] MEDS ORDERED: VALSARTAN 80 MG TAB (DIOVAN) PO SCH (09:00)
[2021-10-28] MEDS ORDERED: ASPIRIN 81MG ENTERIC TABLET PO SCH (09:00)
[2021-10-28 09:47] VITALS: BP 177/94
[2021-10-28 13:11] VITALS: BP 124/52
[2021-10-28] MEDS ORDERED: FURO40TA2 PO (13:18)
[2021-10-28] MEDS ORDERED: METOPROLOL TART 25 MG TABLET PO SCH (21:00)
[2021-10-28] MEDS ORDERED: PARoxetine 20MG TABLET PO SCH (21:00)
[2021-10-28] MEDS ORDERED: PRAVASTATIN 20 MG TAB PO SCH (21:00)
== END 2021-10-28 15:03 | disposition home health service (06) ==
LOC: M ED 16:14 → M ED INP 16:15 → ENRESERV 10-28 12:08 → M MSPAV 10-28 13:10
PROVIDERS: ADMIT Internal Medicine; ATTEND Internal Medicine
DX: I87.2 Venous insufficiency (chronic) (peripheral) (principal); R60.0 Localized edema; I16.0 Hypertensive urgency; I25.10 Atherosclerotic heart disease of native coronary artery without angina pectoris; I50.9 Heart failure, unspecified; I11.9 Hypertensive heart disease without heart failure; E78.5 Hyperlipidemia, unspecified; Z91.14 Patient's other noncompliance with medication regimen; E66.9 Obesity, unspecified; Z79.82 Long term (current) use of aspirin; Z79.899 Other long term (current) drug therapy; Z88.8 Allergy status to other drugs, medicaments and biological substances
CPT/HCPCS: 36415; 71046; 80048; 80076; 83735; 83880; 84145; 84439; 84443; 84484; 85025; 85610; 85652; 85730; 86140; 87631; 93005; 93041; 93970; 94760; 96372; 96374; 99285; G0378; J1644; J1940

== ENCOUNTER → 2021-11-11 | Outpatient (CLI) | payer MEDICARE ==
[~2021-11-11] MED LIST changes: +ALLO300T2 PO; +FERR324T21 PO
[2021-11-11 13:48] LABS: HEMOGLOBIN 15.4 g/dl (13.5-17.5); MEAN CORPUSCULAR HEMOGLOBIN 29.2 pg (27.0-33.0); MEAN CORPUSCULAR HGB CONC 32.8 g/dl (32.0-36.5); MEAN CORPUSCULAR VOLUME 89.2 fl (80.0-96.0); PLATELET COUNT, AUTOMATED 174 10^3/uL (150-450); RED BLOOD COUNT 5.27 10^6/uL (4.30-6.10)
[2021-11-11 15:58] LABS: ALBUMIN 3.6 GM/DL (3.2-5.2); ALT/SGPT 13 U/L (12-78); BILIRUBIN,TOTAL 0.8 MG/DL (0.2-1.0); BLOOD UREA NITROGEN 15 MG/DL (7-18); CALCIUM LEVEL 9.3 MG/DL (8.8-10.2); CARBON DIOXIDE LEVEL 27 MEQ/L (21-32); CHLORIDE LEVEL 111 MEQ/L (98-107); CHOLESTEROL LEVEL 138 MG/DL (<200); CHOLESTEROL RISK RATIO 3.942 (<5); CREATININE FOR GFR 1.12 MG/DL (0.70-1.30); FERRITIN 96 NG/ML (26-388); FREE T4 0.91 NG/DL (0.76-1.46); GLOMERULAR FILTRATION RATE > 60.0 (>35); GLUCOSE, FASTING 115 MG/DL (70-100); HDL CHOLESTEROL 35 MG/DL (>40); IRON (FE) 53 UG/DL (65-175); LDL CHOLESTEROL 76 MG/DL (<100); NON-HDL-C 103 MG/DL; NT-PRO BNP 1010 PG/ML (<450); PERCENT SATURATION 16.6 % (19.7-50.0); POTASSIUM SERUM 4.1 MEQ/L (3.5-5.1); SODIUM LEVEL 144 MEQ/L (136-145); THYROID STIMULATING HORMONE 0.846 uIU/ML (0.358-3.740); TOTAL IRON BINDING CAPACITY 320 UG/DL (250-450); TOTAL PROTEIN 7.1 GM/DL (6.4-8.2); TRIGLYCERIDES LEVEL 133 MG/DL (<150)
[2021-11-11 16:48] LABS: TOTAL 25(OH) VITAMIN D 25.3 NG/ML (30.0-100.0); VITAMIN B12 LEVEL 770 PG/ML (247-911)
[2021-11-11 18:10] LABS: HEMOGLOBIN A1c 5.3 %
== END ==
LOC: M PLALAB 11:13
PROVIDERS: ATTEND Family Medicine
DX: I89.0 Lymphedema, not elsewhere classified (principal); D50.9 Iron deficiency anemia, unspecified; E07.9 Disorder of thyroid, unspecified; E78.00 Pure hypercholesterolemia, unspecified

== ENCOUNTER 2021-12-05 10:00 | Outpatient (RCR) | payer MEDICARE | END 2021-12-15 | LOC: M PT 10:00 | PROVIDERS: ATTEND Family Medicine | DX: I89.0 Lymphedema, not elsewhere classified (principal) ==

== ENCOUNTER 2021-12-23 08:33 | Outpatient (RCR) | payer OTHER, MEDICARE ==
[~2021-12-23 08:33] MED LIST changes: +LEVO1TAB40 PO; -LEVO750T13 PO
== END 2022-01-15 ==
LOC: M PT 08:33
PROVIDERS: ATTEND Family Medicine
DX: I89.0 Lymphedema, not elsewhere classified (principal)

== ENCOUNTER → 2022-03-26 | Outpatient (REF) | payer MEDICARE ==
[2022-03-26 16:21] LABS: BASO # 0.1 10^3/uL (0.0-0.2); BASO % 0.7 % (0.0-1.0); EOS # 0.4 10^3/uL (0.0-0.5); EOS % 5.1 % (0.0-3.0); HEMOGLOBIN 15.3 g/dl (13.5-17.5); LYMPH # 2.6 10^3/uL (1.5-5.0); LYMPH % 33.9 % (24.0-44.0); MEAN CORPUSCULAR HEMOGLOBIN 28.8 pg (27.0-33.0); MEAN CORPUSCULAR HGB CONC 32.6 g/dl (32.0-36.5); MEAN CORPUSCULAR VOLUME 88.3 fl (80.0-96.0); MONO # 0.6 10^3/uL (0.0-0.8); MONO % 7.5 % (2.0-8.0); NEUTROPHILS # 4.1 10^3/uL (1.5-8.5); NEUTROPHILS % 52.7 % (36.0-66.0); PLATELET COUNT, AUTOMATED 137 10^3/uL (150-450); RED BLOOD COUNT 5.32 10^6/uL (4.30-6.10); WHITE BLOOD COUNT 7.7 10^3/uL (4.0-10.0)
[2022-03-26 16:49] LABS: BLOOD UREA NITROGEN 10 MG/DL (7-18); CARBON DIOXIDE LEVEL 28 MEQ/L (21-32); CHLORIDE LEVEL 108 MEQ/L (98-107); CREATININE FOR GFR 1.06 MG/DL (0.70-1.30); GLOMERULAR FILTRATION RATE > 60.0 (>35); GLUCOSE, FASTING 61 MG/DL (70-100); NT-PRO BNP 1980 PG/ML (<450); POTASSIUM SERUM 3.8 MEQ/L (3.5-5.1); SODIUM LEVEL 140 MEQ/L (136-145)
[2022-03-26 16:54] LABS: ALBUMIN 3.5 GM/DL (3.2-5.2); ALT/SGPT 14 U/L (12-78); BILIRUBIN,TOTAL 0.4 MG/DL (0.2-1.0); BLOOD UREA NITROGEN 10 MG/DL (7-18); CALCIUM LEVEL 8.9 MG/DL (8.8-10.2); CARBON DIOXIDE LEVEL 26 MEQ/L (21-32); CHLORIDE LEVEL 109 MEQ/L (98-107); CHOLESTEROL LEVEL 124 MG/DL (<200); CHOLESTEROL RISK RATIO 3.647 (<5); CREATININE FOR GFR 1.04 MG/DL (0.70-1.30); FERRITIN 69 NG/ML (26-388); GLOMERULAR FILTRATION RATE > 60.0 (>35); GLUCOSE, FASTING 50 MG/DL (70-100); HDL CHOLESTEROL 34 MG/DL (>40); IRON (FE) 57 UG/DL (65-175); LDL CHOLESTEROL 50 MG/DL (<100); NON-HDL-C 90 MG/DL; PERCENT SATURATION 15.8 % (19.7-50.0); POTASSIUM SERUM 3.7 MEQ/L (3.5-5.1); SODIUM LEVEL 140 MEQ/L (136-145); TOTAL IRON BINDING CAPACITY 361 UG/DL (250-450); TRIGLYCERIDES LEVEL 199 MG/DL (<150)
[2022-03-26 17:33] LABS: VITAMIN B12 LEVEL 1414 PG/ML (247-911)
[2022-03-26 21:03] LABS: HEMOGLOBIN A1c 5.1 %
== END ==
LOC: M SFHCADAM 13:43
PROVIDERS: ATTEND Family Medicine
DX: I25.10 Atherosclerotic heart disease of native coronary artery without angina pectoris (principal); I89.0 Lymphedema, not elsewhere classified; C83.15 Mantle cell lymphoma, lymph nodes of inguinal region and lower limb; E74.9 Disorder of carbohydrate metabolism, unspecified; D50.9 Iron deficiency anemia, unspecified; E53.8 Deficiency of other specified B group vitamins

== ENCOUNTER → 2022-09-30 | Outpatient (REF) | payer MEDICARE ==
[2022-09-30 13:01] LABS: BASO # 0.1 10^3/uL (0.0-0.2); BASO % 0.7 % (0.0-1.0); EOS # 0.2 10^3/uL (0.0-0.5); HEMATOCRIT 48.7 % (42.0-52.0); LYMPH % 28.5 % (24.0-44.0); MEAN CORPUSCULAR HEMOGLOBIN 28.5 pg (27.0-33.0); MEAN CORPUSCULAR HGB CONC 32.9 g/dl (32.0-36.5); MEAN CORPUSCULAR VOLUME 86.7 fl (80.0-96.0); MONO # 0.5 10^3/uL (0.0-0.8); MONO % 7.2 % (2.0-8.0); NEUTROPHILS # 4.3 10^3/uL (1.5-8.5); NEUTROPHILS % 60.3 % (36.0-66.0); PLATELET COUNT, AUTOMATED 157 10^3/uL (150-450); RED BLOOD COUNT 5.62 10^6/uL (4.30-6.10); WHITE BLOOD COUNT 7.1 10^3/uL (4.0-10.0)
[2022-09-30 13:29] LABS: HEMOGLOBIN A1c 5.3 % (4.0-6.0)
[2022-09-30 13:39] LABS: TOTAL IRON BINDING CAPACITY 352 UG/DL (250-425)
[2022-09-30 13:41] LABS: ALBUMIN 3.8 G/DL (3.2-5.2); ALKALINE PHOSPHATASE 86 U/L (46-116); ALT/SGPT 13 U/L (7.0-40); AST/SGOT 15 U/L (<34); BILIRUBIN,TOTAL 0.5 MG/DL (0.3-1.2); BLOOD UREA NITROGEN 15 MG/DL (9-23); CALCIUM LEVEL 9.1 MG/DL (8.3-10.6); CARBON DIOXIDE LEVEL 26 MMOL/L (20-31); CHLORIDE LEVEL 107 MMOL/L (98-107); CHOLESTEROL LEVEL 127 MG/DL (<200); CHOLESTEROL RISK RATIO 3.62 (<5); CREATININE FOR GFR 1.04 MG/DL (0.70-1.30); GLOMERULAR FILTRATION RATE > 60.0 (>35); GLUCOSE, FASTING 91 MG/DL (74-106); IRON (FE) 52 UG/DL (65-175); LDL CHOLESTEROL 51.6 MG/DL (<100); PERCENT SATURATION 14.8 % (19.7-50.0); POTASSIUM SERUM 4.7 MMOL/L (3.5-5.1); SODIUM LEVEL 141 MMOL/L (136-145); TOTAL PROTEIN 6.8 G/DL (5.7-8.2); TRIGLYCERIDES LEVEL 202 MG/DL (<150)
[2022-09-30 13:46] LABS: VITAMIN B12 LEVEL 314 PG/ML (211-911)
[2022-09-30 13:47] LABS: FERRITIN 61.2 NG/ML (10.5-307.3)
== END ==
LOC: M SFHCADAM 10:44
PROVIDERS: ATTEND Family Medicine
DX: C83.15 Mantle cell lymphoma, lymph nodes of inguinal region and lower limb (principal); I25.10 Atherosclerotic heart disease of native coronary artery without angina pectoris; D50.9 Iron deficiency anemia, unspecified; E53.8 Deficiency of other specified B group vitamins; E74.9 Disorder of carbohydrate metabolism, unspecified; Z79.899 Other long term (current) drug therapy

== ENCOUNTER 2022-10-19 19:55 | Emergency (ER) | payer MEDICARE ==
[~2022-10-19] VITALS: Ht 175.3 cm; Wt 119.0 kg
[2022-10-19 20:17] LABS: VENOUS BASE EXCESS -2.3 (-2.0-2.0); VENOUS HCO3 25.7 MMOL/L (23.0-27.0); VENOUS O2 SATURATION 49.4 % (60.0-80.0); VENOUS PARTIAL PRESSURE CO2 56.4 mmHg (38.0-50.0); VENOUS PARTIAL PRESSURE O2 26.7 mmHg (30.0-50.0); VENOUS PH 7.276 UNITS (7.330-7.430); VENOUS STANDARD HCO3 21.3 MMOL/L; VENOUS TOTAL CO2 27.4 MMOL/L (24.0-28.0)
[2022-10-19 20:23] LABS: BASO % 0.6 % (0.0-1.0); EOS # 0.3 10^3/uL (0.0-0.5); EOS % 4.2 % (0.0-3.0); HEMATOCRIT 47.6 % (42.0-52.0); HEMOGLOBIN 15.4 g/dl (13.5-17.5); LYMPH # 2.3 10^3/uL (1.5-5.0); LYMPH % 33.4 % (24.0-44.0); MEAN CORPUSCULAR HEMOGLOBIN 28.2 pg (27.0-33.0); MEAN CORPUSCULAR HGB CONC 32.4 g/dl (32.0-36.5); MEAN CORPUSCULAR VOLUME 87.2 fl (80.0-96.0); MONO # 0.5 10^3/uL (0.0-0.8); MONO % 7.1 % (2.0-8.0); NEUTROPHILS # 3.8 10^3/uL (1.5-8.5); NEUTROPHILS % 54.4 % (36.0-66.0); PLATELET COUNT, AUTOMATED 147 10^3/uL (150-450); RED BLOOD COUNT 5.46 10^6/uL (4.30-6.10); WHITE BLOOD COUNT 6.9 10^3/uL (4.0-10.0)
[2022-10-19 20:31] LABS: INR 1.03; PROTHROMBIN TIME 13.7 SECONDS (12.5-14.5)
[2022-10-19 20:32] LABS: PARTIAL THROMBOPLASTIN TIME 29.2 SECONDS (24.8-34.2)
[2022-10-19 20:44] LABS: BLOOD UREA NITROGEN 10 MG/DL (9-23); CALCIUM LEVEL 6.7 MG/DL (8.3-10.6); CARBON DIOXIDE LEVEL 25 MMOL/L (20-31); CHLORIDE LEVEL 112 MMOL/L (98-107); CPK CREATINE PHOSPHOKINASE 35 U/L (46-171); CREATININE FOR GFR 0.87 MG/DL (0.70-1.30); GLOMERULAR FILTRATION RATE > 60.0 (>35); GLUCOSE, FASTING 84 MG/DL (74-106); MB/CK RELATIVE INDEX 2.85 (< OR =4); POTASSIUM SERUM 3.1 MMOL/L (3.5-5.1); SODIUM LEVEL 144 MMOL/L (136-145)
[2022-10-19 21:02] LABS: ABG BASE EXCESS -0.9 (-2.0-2.0); ABG HCO3 24.2 MMOL/L (22.0-26.0); ABG O2 SATURATION 95.1 % (95.0-99.0); ABG PARTIAL PRESSURE CO2 41.6 mmHg (35.0-45.0); ABG PARTIAL PRESSURE O2 73.2 mmHg (75.0-100.0); ABG STANDARD HCO3 23.7 MMOL/L. (22.0-26.0); ABG TOTAL CO2 25.4 MMOL/L (23.0-31.0); ABG pH (ARTERIAL) 7.382 UNITS (7.350-7.450)
[2022-10-19 21:07] LABS: ETHYL ALCOHOL (ETHANOL) 0.006 % (0.000-0.010)
[2022-10-19] MEDS ORDERED: ISOVUE-370 76% 100ML VIAL As Ordered ONE (21:52)
[2022-10-19 22:03] LABS: CK-MB VALUE MASS 1.3 NG/ML (<3.6); MB/CK RELATIVE INDEX 2.76 (< OR =4)
[2022-10-19 23:44] LABS: CK-MB VALUE MASS 1.5 NG/ML (<3.6)
[2022-10-20] MEDS ORDERED: FURO40TA2 PO (00:22)
[2022-10-20] MEDS ORDERED: ACET32TAB PO (00:22)
[2022-10-20] MEDS ORDERED: ALLO100T PO (00:22)
[2022-10-20] MEDS ORDERED: HOME MED LIST COMPLETE! XX SCH (00:25)
[2022-10-20] MEDS ORDERED: ELIQ5TAB PO (01:43)
[2022-10-20] MEDS ORDERED: APIXABAN 5 MG TAB (ELIQUIS) PO ONE (01:45)
[2022-10-20 02:01] VITALS: BP 156/74
== END 2022-10-20 03:18 | disposition home or self-care (01) ==
LOC: EDBD 19:55 → M ED 19:55
DX: I26.99 Other pulmonary embolism without acute cor pulmonale (principal); I48.91 Unspecified atrial fibrillation; I25.2 Old myocardial infarction; I45.19 Other right bundle-branch block; I44.5 Left posterior fascicular block; E78.5 Hyperlipidemia, unspecified; I10 Essential (primary) hypertension; J44.9 Chronic obstructive pulmonary disease, unspecified; F10.10 Alcohol abuse, uncomplicated; Z86.79 Personal history of other diseases of the circulatory system; Z88.8 Allergy status to other drugs, medicaments and biological substances
CPT/HCPCS: 36600; 71045; 71275; 80048; 82077; 82550; 82553; 82803; 83880; 84484; 85025; 85610; 85730; 87040; 87486; 87581; 87633; 87798; 93005; 93041; 93970; 94760; 99285; Q9967

== ENCOUNTER → 2022-10-22 | Outpatient (REF) | payer MEDICARE ==
[~2022-10-22] MED LIST changes: +ACET32TAB PO; +ELIQ5TAB PO
== END ==
LOC: M SFHCADAM 11:08
PROVIDERS: ATTEND Physician Assistant
DX: I26.94 Multiple subsegmental thrombotic pulmonary emboli without acute cor pulmonale (principal); I25.10 Atherosclerotic heart disease of native coronary artery without angina pectoris

== ENCOUNTER → 2023-02-19 | Outpatient (CLI) | payer MEDICARE ==
[~2023-02-19] MED LIST changes: +CYAN-1 PO; -CYAN100050 PO; -K-TA10TA2 PO; +POTA-165 PO
[2023-02-19 13:14] LABS: BASO # 0.1 10^3/uL (0.0-0.2); BASO % 0.8 % (0.0-1.0); EOS # 0.4 10^3/uL (0.0-0.5); EOS % 6.4 % (0.0-3.0); HEMATOCRIT 46.9 % (42.0-52.0); HEMOGLOBIN 15.2 g/dl (13.5-17.5); LYMPH # 1.9 10^3/uL (1.5-5.0); LYMPH % 28.8 % (24.0-44.0); MEAN CORPUSCULAR HEMOGLOBIN 27.7 pg (27.0-33.0); MEAN CORPUSCULAR HGB CONC 32.4 g/dl (32.0-36.5); MEAN CORPUSCULAR VOLUME 85.6 fl (80.0-96.0); MONO # 0.4 10^3/uL (0.0-0.8); MONO % 6.5 % (2.0-8.0); NEUTROPHILS # 3.8 10^3/uL (1.5-8.5); NEUTROPHILS % 57.2 % (36.0-66.0); PLATELET COUNT, AUTOMATED 210 10^3/uL (150-450); RED BLOOD COUNT 5.48 10^6/uL (4.30-6.10); WHITE BLOOD COUNT 6.6 10^3/uL (4.0-10.0)
[2023-02-19 13:37] LABS: BLOOD UREA NITROGEN 13 MG/DL (9-23); CALCIUM LEVEL 8.8 MG/DL (8.3-10.6); CARBON DIOXIDE LEVEL 28 MMOL/L (20-31); CHLORIDE LEVEL 109 MMOL/L (98-107); CREATININE FOR GFR 1.01 MG/DL (0.70-1.30); GLOMERULAR FILTRATION RATE > 60.0 (>35); GLUCOSE, FASTING 97 MG/DL (74-106); POTASSIUM SERUM 4.6 MMOL/L (3.5-5.1); SODIUM LEVEL 141 MMOL/L (136-145)
== END ==
LOC: M LAB 12:43
PROVIDERS: ATTEND Physician Assistant
DX: I26.94 Multiple subsegmental thrombotic pulmonary emboli without acute cor pulmonale (principal)

== ENCOUNTER → 2023-02-25 | Outpatient (REF) | payer MEDICARE ==
[~2023-02-25] MED LIST changes: -OXYB5TAB10 PO; +OXYB5TAB11 PO
== END ==
LOC: M SFHCADAM 12:31
PROVIDERS: ATTEND Family Medicine
DX: I11.9 Hypertensive heart disease without heart failure (principal); I89.0 Lymphedema, not elsewhere classified; R53.83 Other fatigue

== ENCOUNTER → 2023-02-25 | Outpatient (CLI) | payer MEDICARE ==
[2023-02-25 16:24] LABS: HEMOGLOBIN A1c 4.9 % (4.0-6.0)
[2023-02-25 16:42] LABS: FREE T4 1.18 NG/DL (0.89-1.76); THYROID STIMULATING HORMONE 1.636 uIU/ML (0.55-4.78)
== END ==
LOC: M PLALAB 13:23
PROVIDERS: ATTEND Family Medicine
DX: I11.9 Hypertensive heart disease without heart failure (principal); I89.0 Lymphedema, not elsewhere classified; R53.83 Other fatigue; R05.3 Chronic cough; Z79.899 Other long term (current) drug therapy

== ENCOUNTER → 2023-05-21 | Outpatient (CLI) | payer MEDICARE, OTHER | LOC: M RAD 13:19 | PROVIDERS: ATTEND Physician Assistant | DX: R68.89 Other general symptoms and signs (principal) ==

== ENCOUNTER → 2023-06-01 | Outpatient (CLI) | payer MEDICARE, OTHER | LOC: M RAD 12:47 | PROVIDERS: ATTEND Physician Assistant | DX: I87.303 Chronic venous hypertension (idiopathic) without complications of bilateral lower extremity (principal) ==

== ENCOUNTER → 2023-06-23 | Outpatient (CLI) | payer MEDICARE, OTHER ==
[~2023-06-23] MED LIST changes: -OXYB5TAB11 PO; +OXYB5TAB14 PO
== END ==
LOC: M RAD 11:34
PROVIDERS: ATTEND Internal Medicine
DX: I71.20 Thoracic aortic aneurysm, without rupture, unspecified (principal)

== ENCOUNTER → 2023-07-27 | Outpatient (CLI) | payer MEDICARE | LOC: M RAD 10:21 | PROVIDERS: ATTEND Family Medicine | DX: E04.1 Nontoxic single thyroid nodule (principal) ==

== ENCOUNTER → 2023-08-14 | Outpatient (CLI) | payer MEDICARE | LOC: M WUC 10:38 | PROVIDERS: ATTEND Nurse Practitioner Family | DX: R05.9 Cough, unspecified (principal) ==

== ENCOUNTER → 2023-09-07 | Outpatient (CLI) | payer MEDICARE | LOC: M WUC 14:43 | PROVIDERS: ATTEND Physician Assistant | DX: J20.9 Acute bronchitis, unspecified (principal); R05.9 Cough, unspecified ==

== ENCOUNTER → 2023-09-23 | Outpatient (REF) | payer MEDICARE | LOC: M SFHCDERM 17:37 | PROVIDERS: ATTEND Physician Assistant | DX: C44.622 Squamous cell carcinoma of skin of right upper limb, including shoulder (principal) ==

== ENCOUNTER → 2023-11-25 | Outpatient (REF) | payer MEDICARE | LOC: M SFHCDERM 16:55 | PROVIDERS: ATTEND Nurse Practitioner Family | DX: L97.811 Non-pressure chronic ulcer of other part of right lower leg limited to breakdown of skin (principal) ==

== ENCOUNTER 2023-12-02 11:10 | Emergency (ER) | payer MEDICARE ==
[~2023-12-02] VITALS: Ht 175.3 cm; Wt 109.0 kg
[2023-12-02] MEDS ORDERED: LEVO1TAB39 (12:22)
[2023-12-02 12:53] LABS: BASO # 0.1 10^3/uL (0.0-0.2); BASO % 0.6 % (0.0-1.0); EOS # 0.2 10^3/uL (0.0-0.5); EOS % 2.9 % (0.0-3.0); HEMATOCRIT 45.6 % (42.0-52.0); HEMOGLOBIN 15.1 g/dl (13.5-17.5); LYMPH # 1.8 10^3/uL (1.5-5.0); MEAN CORPUSCULAR HEMOGLOBIN 28.2 pg (27.0-33.0); MEAN CORPUSCULAR HGB CONC 33.1 g/dl (32.0-36.5); MEAN CORPUSCULAR VOLUME 85.1 fl (80.0-96.0); MONO # 0.6 10^3/uL (0.0-0.8); MONO % 7.8 % (2.0-8.0); NEUTROPHILS # 5.1 10^3/uL (1.5-8.5); NEUTROPHILS % 65.4 % (36.0-66.0); PLATELET COUNT, AUTOMATED 181 10^3/uL (150-450); RED BLOOD COUNT 5.36 10^6/uL (4.30-6.10); WHITE BLOOD COUNT 7.8 10^3/uL (4.0-10.0)
[2023-12-02 13:00] LABS: ERYTHROCYTE SEDIMENTATION RATE 40 mm/hr (0-20)
[2023-12-02 13:14] LABS: ALBUMIN 3.3 G/DL (3.2-5.2); ALKALINE PHOSPHATASE 86 U/L (46-116); ALT/SGPT 9 U/L (7.0-40); AST/SGOT 10 U/L (<34); BILIRUBIN,DIRECT 0.3 MG/DL (<0.4); BILIRUBIN,TOTAL 0.9 MG/DL (0.3-1.2); BLOOD UREA NITROGEN 15 MG/DL (9-23); CALCIUM LEVEL 9.3 MG/DL (8.3-10.6); CARBON DIOXIDE LEVEL 25 MMOL/L (20-31); CHLORIDE LEVEL 108 MMOL/L (98-107); CREATININE FOR GFR 1.16 MG/DL (0.70-1.30); GLOMERULAR FILTRATION RATE > 60.0 (>35); GLUCOSE, FASTING 86 MG/DL (74-106); POTASSIUM SERUM 4.8 MMOL/L (3.5-5.1); SODIUM LEVEL 140 MMOL/L (136-145); TOTAL PROTEIN 6.5 G/DL (5.7-8.2)
[2023-12-02 17:04] VITALS: BP 125/68; TEMP 97.6; O2SAT 95
== END 2023-12-02 17:06 | disposition home or self-care (01) ==
LOC: M ED 11:10
DX: I87.2 Venous insufficiency (chronic) (peripheral) (principal); M25.461 Effusion, right knee; I10 Essential (primary) hypertension; I25.2 Old myocardial infarction; K21.9 Gastro-esophageal reflux disease without esophagitis; J44.9 Chronic obstructive pulmonary disease, unspecified; F41.9 Anxiety disorder, unspecified; F32.A Depression, unspecified; E78.5 Hyperlipidemia, unspecified; C61 Malignant neoplasm of prostate; Z86.79 Personal history of other diseases of the circulatory system; Z95.0 Presence of cardiac pacemaker; Z88.3 Allergy status to other anti-infective agents; Z88.8 Allergy status to other drugs, medicaments and biological substances; Z79.01 Long term (current) use of anticoagulants; Z79.82 Long term (current) use of aspirin; Z79.810 Long term (current) use of selective estrogen receptor modulators (SERMs); Z79.899 Other long term (current) drug therapy

== ENCOUNTER 2023-12-23 17:35 | Emergency (ER) | payer MEDICARE ==
[~2023-12-23] VITALS: Ht 175.3 cm; Wt 108.6 kg
[~2023-12-23 17:35] MED LIST changes: +LEVO1TAB39
[2023-12-23] MEDS: SILVER NITRATE APPLICATOR (1 = QTY 10) TOP ONE (18:31)
[2023-12-23 18:38] LABS: HEMATOCRIT 45.5 % (42.0-52.0); HEMOGLOBIN 14.5 g/dl (13.5-17.5)
[2023-12-23 18:49] LABS: INR 1.44; PARTIAL THROMBOPLASTIN TIME 33.5 SECONDS (24.8-34.2); PROTHROMBIN TIME 17.1 SECONDS (12.5-14.5)
[2023-12-23 21:09] VITALS: BP 142/81; TEMP 97.6; O2SAT 96
== END 2023-12-23 21:16 | disposition home or self-care (01) ==
LOC: M ED 17:35
DX: H95.42 Postprocedural hemorrhage of ear and mastoid process following other procedure (principal); I25.2 Old myocardial infarction; J44.9 Chronic obstructive pulmonary disease, unspecified; Z95.0 Presence of cardiac pacemaker; Z86.79 Personal history of other diseases of the circulatory system; Z79.01 Long term (current) use of anticoagulants; Z88.8 Allergy status to other drugs, medicaments and biological substances; Z79.82 Long term (current) use of aspirin; Z79.899 Other long term (current) drug therapy
CPT/HCPCS: 11102; 14041; 17311; 17312; 36415; 85014; 85018; 85610; 85730; 86850; 86900; 86901; 88305; 99283; G0463

== ENCOUNTER → 2023-12-31 | Outpatient (REF) | payer MEDICARE | LOC: M SFHCDERM 17:44 | PROVIDERS: ATTEND Dermatology | DX: T14.90XD Injury, unspecified, subsequent encounter (principal) ==

== ENCOUNTER → 2024-09-16 | Outpatient (CLI) | payer MEDICARE, OTHER | LOC: M RAD 11:09 | PROVIDERS: ATTEND Internal Medicine | DX: E21.3 Hyperparathyroidism, unspecified (principal) ==

== ENCOUNTER → 2024-10-05 | Outpatient (REF) | payer OTHER, MEDICARE | LOC: M SFHCDERM 16:23 | PROVIDERS: ATTEND Physician Assistant | DX: C44.92 Squamous cell carcinoma of skin, unspecified (principal); L57.8 Other skin changes due to chronic exposure to nonionizing radiation ==

== ENCOUNTER → 2024-12-14 | Outpatient (CLI) | payer MEDICARE, OTHER ==
[~2024-12-14] MED LIST changes: +PRAV80TA75 PO
== END ==
LOC: M ADAMS 14:18
PROVIDERS: ATTEND Family Medicine
DX: C83.15 Mantle cell lymphoma, lymph nodes of inguinal region and lower limb (principal)

== ENCOUNTER → 2025-01-12 | Outpatient (REF) | payer MEDICARE, OTHER | LOC: M SFHCDERM 17:33 | PROVIDERS: ATTEND Dermatology | DX: C44.629 Squamous cell carcinoma of skin of left upper limb, including shoulder (principal) ==

== ENCOUNTER 2025-01-16 08:14 | Emergency (ER) | payer OTHER, MEDICARE ==
[~2025-01-16] VITALS: Ht 175.3 cm; Wt 105.2 kg
[2025-01-16 08:22] VITALS: TEMP 97.2
[2025-01-16] MEDS: SILVER NITRATE APPLICATOR (1 = QTY 10) TOP ONE (10:00)
[2025-01-16 10:30] VITALS: BP 114/67; O2SAT 96
[2025-01-16] MEDS: TRANEXAMIC ACID 100 MG/ML 10ML VIAL ONE (11:28)
== END 2025-01-16 11:30 | disposition home or self-care (01) ==
LOC: M ED 08:14
DX: L76.21 Postprocedural hemorrhage of skin and subcutaneous tissue following a dermatologic procedure (principal); Z85.828 Personal history of other malignant neoplasm of skin; I25.2 Old myocardial infarction; E78.5 Hyperlipidemia, unspecified; I10 Essential (primary) hypertension; Z86.79 Personal history of other diseases of the circulatory system; Z95.0 Presence of cardiac pacemaker; Z79.1 Long term (current) use of non-steroidal anti-inflammatories (NSAID); Z79.899 Other long term (current) drug therapy; Z79.82 Long term (current) use of aspirin; Z79.01 Long term (current) use of anticoagulants

== ENCOUNTER → 2025-02-14 | Outpatient (REF) | payer OTHER, MEDICARE | LOC: M SFHCDERM 16:23 | PROVIDERS: ATTEND Physician Assistant | DX: C44.629 Squamous cell carcinoma of skin of left upper limb, including shoulder (principal) ==

== ENCOUNTER 2025-03-22 17:37 | Emergency (ER) | payer OTHER, MEDICARE ==
[~2025-03-22] VITALS: Ht 175.3 cm; Wt 103.6 kg
[2025-03-22] MEDS: TETRACAINE 0.5% OPHTH SOLN 4ML OD ONE (23:10)
[2025-03-22] MEDS: FLUORESCEIN OPHTH 1 MG STRIP OD ONE (23:10)
[2025-03-22 23:48] VITALS: BP 138/73; TEMP 96.8; O2SAT 98
== END 2025-03-22 23:52 | disposition home or self-care (01) ==
LOC: M ED 17:37
DX: S05.01XA Injury of conjunctiva and corneal abrasion without foreign body, right eye, initial encounter (principal); I25.2 Old myocardial infarction; I10 Essential (primary) hypertension; E78.5 Hyperlipidemia, unspecified; K21.9 Gastro-esophageal reflux disease without esophagitis; F32.A Depression, unspecified; F41.9 Anxiety disorder, unspecified; G47.33 Obstructive sleep apnea (adult) (pediatric); Z86.79 Personal history of other diseases of the circulatory system; Z88.8 Allergy status to other drugs, medicaments and biological substances; Z95.0 Presence of cardiac pacemaker; Z79.01 Long term (current) use of anticoagulants; Z79.899 Other long term (current) drug therapy; Z79.82 Long term (current) use of aspirin; Y92.89 Other specified places as the place of occurrence of the external cause; Y93.9 Activity, unspecified; Y99.9 Unspecified external cause status